=== PATIENT | female | born 1990 | race Caucasian/White ===

== ENCOUNTER 2021-09-02 08:00 | Outpatient (CLI) | payer OTHER | END 2021-09-02 23:59 | LOC: LAB.N 08:00 | PROVIDERS: ATTEND Physician Assistant Medical | DX: R10.9 Unspecified abdominal pain (principal); R19.7 Diarrhea, unspecified | CPT/HCPCS: 81599; 87045; 87086; 87177; 87209; 87427; 87449; 87493 ==

== ENCOUNTER 2021-10-29 08:00 | Outpatient (CLI) | payer OTHER | END 2021-10-29 23:59 | LOC: LAB.R 08:00 | PROVIDERS: ATTEND Physician Assistant Medical | DX: R10.9 Unspecified abdominal pain (principal) | CPT/HCPCS: 87086 ==

== ENCOUNTER 2022-11-14 19:10 | Outpatient (CLI) | payer OTHER | END 2022-11-14 19:11 | disposition EMS.NT | LOC: EMS 19:10 | DX: M54.50 Low back pain, unspecified (principal) ==

== ENCOUNTER 2022-11-14 19:44 | Emergency (ER) | payer OTHER ==
--- OUTSIDE RECORDS SUMMARY | 2022-11-14 20:34 | EXTERNAL MEDICAL SUMMARY RPT | Continuity of Care Document ---
:1990 Author Organization [facility] Address [address] [place] [address] Phone Care Team Providers Name Role Phone Unavailable Unavailable Unavailable Sudhir Valdez Unavailable Unavailable Allergies No information. Encounters No information. Functional Status No information. Immunizations No information. Medications date description facility 2022-11-10 00:00 Clotrimazole [facility] 2022-11-10 00:00 Amoxicillin-Pot Clavulanate [facility] 2022-11-10 00:00 Clobetasol [facility] Problems date description facility 2022-11-10 14:40 Pain in unspecified joint [facility] Procedures No information. Results/Labs test date author facility value unit interpret ation Result panel 1 (unknown) (no date) ([facility] Result panel 2 (unknown) (no date) (unknown[facility]) Result panel 3 (unknown) (no date) (unknown[facility]) Result panel 4 (unknown) (no date) (unknown[facility]) Result panel 5 (unknown) (no date) (unknown[facility]) Result panel 6 (unknown) (no date) (unknown[facility]) Result panel 7 (unknown) (no date) (unknown[facility]) Result panel 8 (unknown) (no date) (unknown[facility]) Result panel 9 (unknown) (no date) (unknown[facility]) Result panel 10 (unknown) (no date) (unknown[facility]) Result panel 11 (unknown) (no date) (unknown[facility]) Result panel 12 (unknown) (no date) (unknown[facility]) Result panel 13 (unknown) (no date) (unknown[facility]) Result panel 14 (unknown) (no date) (unknown[facility]) Result panel 15 (unknown) (no date) (unknown[facility]) Result panel 16 (unknown) (no date) (unknown[facility]) Result panel 17 (unknown) (no date) (unknown[facility]) Result panel 18 (unknown) (no date) (unknown[facility]) Result panel 19 (unknown) (no date) (unknown[facility]) Result panel 20 (unknown) (no date) (unknown[facility]) Result panel 21 (unknown) (no date) (unknown[facility]) Result panel 22 (unknown) (no date) (unknown[facility]) Result panel 23 (unknown) (no date) (unknown[facility]) Result panel 24 (unknown) (no date) (unknown[facility]) Result panel 25 (unknown) (no date) (unknown[facility]) Result panel 26 (unknown) (no date) (unknown[facility]) Result panel 27 (unknown) (no date) (unknown[facility]) Result panel 28 (unknown) (no date) (unknown[facility]) Result panel 29 (unknown) (no date) (unknown[facility]) Result panel 30 (unknown) (no date) (unknown[facility]) Result panel 31 (unknown) (no date) (unknown[facility]) Result panel 32 (unknown) (no date) (unknown[facility]) Result panel 33 (unknown) (no date) (unknown[facility]) Result panel 34 (unknown) (no date) (unknown) [facility]) Result panel 35 (unknown) (no date) (unknown[facility]) Result panel 36 (unknown) (no date) (unknown[facility]) Result panel 37 (unknown) (no date) (unknown) [facility]) Result panel 38 (unknown) (no date) (unknown) [facility]) Result panel 39 (unknown) (no date) (unknown) [facility]) Result panel 40 (unknown) (no date) (unknown) [facility]) Result panel 41 (unknown) (no date) (unknown[facility]) Result panel 42 (unknown) (no date) (unknown[facility]) Result panel 43 (unknown) (no date) (unknown[facility]) Result panel 44 (unknown) (no date) (unknown[facility]) Result panel 45 (unknown) (no date) (unknown[facility]) Result panel 46 (unknown) (no date) (unknown[facility]) Result panel 47 (unknown) (no date) (unknown[facility]) Result panel 48 (unknown) (no date) (unknown[facility]) Result panel 49 (unknown) (no date) (unknown[facility]) Result panel 50 (unknown) (no date) (unknown[facility]) Result panel 51 (unknown) (no date) (unknown[facility]) Result panel 52 (unknown) (no date) (unknown[facility]) Result panel 53 (unknown) (no (unknown) (unknown) (no value) (units (unk nown) date) unknown) (unknown) (no (unknown) (unknown) 11/10/22 (units (unkno wn) date) unknown) (unknown) (no (unknown) (unknown) 11/10/22] (units (unkn own) date) unknown) (unknown) (no (unknown) (unknown) 11/26/21 [Rx (units (u nknown) date) Confirmed unknown) 06/22/22] (unknown) (no (unknown) (unknown) 13:38 (units (unkno wn) date) unknown) (unknown) (no (unknown) (unknown) [id number] (units (unkno wn) date) unknown) (unknown) (no (unknown) (unknown) Age/Sex: 32 / F (units (unknown) date) Date of Service: unknown) (unknown) (no (unknown) (unknown) Allergies (units (unkn own) date) unknown) (unknown) (no (unknown) (unknown) [place], [place] (units ( unknown) date) [id number] unknown) (unknown) (no (unknown) (unknown) Anesthesia (units (unk nown) date) unknown) (unknown) (no (unknown) (unknown) Anxiety (-2015) (units (unknown) date) unknown) (unknown) (no (unknown) (unknown) Attending Dr: (units ( unknown) date) Sudhir PEDERSON unknown) (unknown) (no (unknown) (unknown) BMI 34.4 (units (unkno wn) date) unknown) (unknown) (no (unknown) (unknown) BP 130/86 (units (unkn own) date) unknown) (unknown) (no (unknown) (unknown) Blood Pressure (units (unknown) date) Location Lt unknown) brachial (unknown) (no (unknown) (unknown) Confirmed (units (unkn own) date) 06/22/22] unknown) (unknown) (no (unknown) (unknown) : 1990 (units (unknown) date) Acct:[id number] unknown) (unknown) (no (unknown) (unknown) Decreased libido (units (unknown) date) unknown) (unknown) (no (unknown) (unknown) Dept at (units (unkno wn) date) . unknown) (unknown) (no (unknown) (unknown) Documented By: (units (unknown) date) Sudhir Valdez unknown) 11/10/22 1333 (unknown) (no (unknown) (unknown) Draft (units (unkno wn) date) unknown) (unknown) (no (unknown) (unknown) Ectopic (units (unknown) date) unknown) (unknown) (no (unknown) (unknown) Family History (units (unknown) date) (Reviewed 06/27/22 unknown) @ 11:02 by DACIA Mitchell) (unknown) (no (unknown) (unknown) Family Practice (units (unknown) date) Office Visit unknown) (unknown) (no (unknown) (unknown) [facility] unknown) (unknown) (no (unknown) (unknown) Grandfather (units (un known) date) History of heart unknown) disease (unknown) (no (unknown) (unknown) Grandmother (units (un known) date) Cancer unknown) (unknown) (no (unknown) (unknown) Grandmother (units (un known) date) Diabetes mellitus unknown) (unknown) (no (unknown) (unknown) H/O LEEP (units (unkno wn) date) unknown) (unknown) (no (unknown) (unknown) Height 5 ft 7 in (units (unknown) date) unknown) (unknown) (no (unknown) (unknown) History of (units (unk nown) date) surgery () unknown) (unknown) (no (unknown) (unknown) Hyperplastic (units (u nknown) date) colon polyp unknown) (unknown) (no (unknown) (unknown) Intake performed (units (unknown) date) by: Leticia Pepper unknown) (unknown) (no (unknown) (unknown) Intake (units (unkno wn) date) unknown) (unknown) (no (unknown) (unknown) Intake- Clincial (units (unknown) date) Staff unknown) (unknown) (no (unknown) (unknown) Last Menstural (units (unknown) date) Cycle + Details unknown) (unknown) (no (unknown) (unknown) Loc: [facility] (units (unkno wn) date) unknown) (unknown) (no (unknown) (unknown) Lymphocytic (units (un known) date) colitis unknown) (unknown) (no (unknown) (unknown) Medical History (units (unknown) date) (Reviewed 06/27/22 unknown) @ 11:02 by DACIA Mitchell) (unknown) (no (unknown) (unknown) Medications (units (un known) date) unknown) (unknown) (no (unknown) (unknown) No Known Drug (units ( unknown) date) Allergies Allergy unknown) (Verified 11/10/22 13:34) (unknown) (no (unknown) (unknown) Other Menstrual (units (unknown) date) Period: Other unknown) (unknown) (no (unknown) (unknown) Oxygen Delivery (units (unknown) date) Method room air unknown) (unknown) (no (unknown) (unknown) PFSH (units (unkno wn) date) unknown) (unknown) (no (unknown) (unknown) Patient: (units (unkno wn) date) Rm Teixeira Sheron unknown) MR#: [id number] (unknown) (no (unknown) (unknown) Position Sitting (units (unknown) date) unknown) (unknown) (no (unknown) (unknown) Pulse 87 (units (unkno wn) date) unknown) (unknown) (no (unknown) (unknown) Pulse Oximetry (units (unknown) date) (%) 98 unknown) (unknown) (no (unknown) (unknown) Pulse Source (units (u nknown) date) Monitor unknown) (unknown) (no (unknown) (unknown) Reason For Visit (units (unknown) date) unknown) (unknown) (no (unknown) (unknown) Signed By: (units (unk nown) date) unknown) (unknown) (no (unknown) (unknown) Smoking Status: (units (unknown) date) Former smoker unknown) (unknown) (no (unknown) (unknown) Social History (units (unknown) date) unknown) (unknown) (no (unknown) (unknown) Surgical History (units (unknown) date) (Reviewed 06/27/22 unknown) @ 11:02 by DACIA Mitchell) (unknown) (no (unknown) (unknown) This note may (units ( unknown) date) have been all or unknown) partially generated using voice recognition (unknown) (no (unknown) (unknown) Tobacco + (units (unkn own) date) Substance Use unknown) (unknown) (no (unknown) (unknown) Tobacco Status (units (unknown) date) unknown) (unknown) (no (unknown) (unknown) Visit Reasons: (units (unknown) date) rash on unknown) hands/legs/torso (unknown) (no (unknown) (unknown) Vitals (units (unkno wn) date) unknown) (unknown) (no (unknown) (unknown) Weight 220 lb 4 (units (unknown) date) oz unknown) (unknown) (no (unknown) (unknown) [History (units (unkno wn) date) Confirmed unknown) 11/10/22] (unknown) (no (unknown) (unknown) alcohol intake: (units (unknown) date) former unknown) (unknown) (no (unknown) (unknown) amoxicillin 875 (units (unknown) date) mg-potassium unknown) clavulanate 125 mg tablet 1 tab PO 11/10/22 (unknown) (no (unknown) (unknown) clobetasol 0.05 % (units (unknown) date) topical ointment g unknown) topical 11/10/22 [History Confirmed (unknown) (no (unknown) (unknown) clotrimazole 1 % (units (unknown) date) topical cream g unknown) topical 11/10/22 [History Confirmed 11/10/22] (unknown) (no (unknown) (unknown) cyclobenzaprine (units (unknown) date) 10 mg tablet 10 mg unknown) PO 11/10/22 [History Confirmed 11/10/22] (unknown) (no (unknown) (unknown) have occurred. If (units (unknown) date) there are any unknown) questions, please contact the Medical Records (unknown) (no (unknown) (unknown) household (units (unkn own) date) members: spouse unknown) (unknown) (no (unknown) (unknown) hyoscyamine (units (un known) date) sulfate 0.125 mg unknown) tablet 0.125 mg PO BID-QID PRN dyspepsia #30 tabs (unknown) (no (unknown) (unknown) intrauterine (units (u nknown) date) 02/25/21 [History unknown) Confirmed 11/10/22] (unknown) (no (unknown) (unknown) levonorgestrel 21 (units (unknown) date) mcg/24 hours (8 unknown) yrs) 52 mg intrauterine device (Mirena) (unknown) (no (unknown) (unknown) may occur. (units (unk nown) date) Occasional unknown) wrong-word or 'sound-alike' substitutions may have (unknown) (no (unknown) (unknown) occurred due to (units (unknown) date) the inherent unknown) limitations of voice recognition software. Please (unknown) (no (unknown) (unknown) read the note (units ( unknown) date) carefully and unknown) recognize, using context, where these substitutions (unknown) (no (unknown) (unknown) software. (units (unkn own) date) Although every unknown) effort is made to edit content, torts law professor errors (unknown) (no (unknown) (unknown) trazodone 50 mg (units (unknown) date) tablet 50 mg PO unknown) BEDTIME PRN sleep #30 tabs 06/02/22 [Rx Result panel 54 (unknown) (no (unknown) (unknown) (no value) (units (unk nown) date) unknown) (unknown) (no (unknown) (unknown) 11/10/22 (units (unkno wn) date) unknown) (unknown) (no (unknown) (unknown) 11/10/22] (units (unkn own) date) unknown) (unknown) (no (unknown) (unknown) 11/26/21 [Rx (units (u nknown) date) Confirmed unknown) 06/22/22] (unknown) (no (unknown) (unknown) 13:38 (units (unkno wn) date) unknown) (unknown) (no (unknown) (unknown) 32 Y/O Female (units ( unknown) date) presents today unknown) with a rash/eczema on her hands, thighs and torso. (unknown) (no (unknown) (unknown) [id number] (units (unkno wn) date) unknown) (unknown) (no (unknown) (unknown) Age/Sex: 32 / F (units (unknown) date) Date of Service: unknown) (unknown) (no (unknown) (unknown) Allergies (units (unkn own) date) unknown) (unknown) (no (unknown) (unknown) [place], [place] (units ( unknown) date) [id number] unknown) (unknown) (no (unknown) (unknown) Anesthesia (units (unk nown) date) unknown) (unknown) (no (unknown) (unknown) Anxiety (-2015) (units (unknown) date) unknown) (unknown) (no (unknown) (unknown) Attending Dr: (units ( unknown) date) Sudhir PEDERSON unknown) (unknown) (no (unknown) (unknown) BMI 34.4 (units (unkno wn) date) unknown) (unknown) (no (unknown) (unknown) BP 130/86 (units (unkn own) date) unknown) (unknown) (no (unknown) (unknown) Blood Pressure (units (unknown) date) Location Lt unknown) brachial (unknown) (no (unknown) (unknown) Confirmed (units (unkn own) date) 06/22/22] unknown) (unknown) (no (unknown) (unknown) : 1990 (units (unknown) date) Acct:[id number] unknown) (unknown) (no (unknown) (unknown) Decreased libido (units (unknown) date) unknown) (unknown) (no (unknown) (unknown) Dept at (units (unkno wn) date) . unknown) (unknown) (no (unknown) (unknown) Documented By: (units (unknown) date) Sudhir Valdez unknown) 11/10/22 1333 (unknown) (no (unknown) (unknown) Draft (units (unkno wn) date) unknown) (unknown) (no (unknown) (unknown) Ectopic (units (unknown) date) unknown) (unknown) (no (unknown) (unknown) Family History (units (unknown) date) (Reviewed 06/27/22 unknown) @ 11:02 by DACIA Mitchell) (unknown) (no (unknown) (unknown) Family Practice (units (unknown) date) Office Visit unknown) (unknown) (no (unknown) (unknown) [facility] ([facility] ([facility] date[facility] unknown) (unknown) (no (unknown) (unknown) Grandfather (units (un known) date) History of heart unknown) disease (unknown) (no (unknown) (unknown) Grandmother (units (un known) date) Cancer unknown) (unknown) (no (unknown) (unknown) Grandmother (units (un known) date) Diabetes mellitus unknown) (unknown) (no (unknown) (unknown) H/O LEEP (units (unkno wn) date) unknown) (unknown) (no (unknown) (unknown) Height 5 ft 7 in (units (unknown) date) unknown) (unknown) (no (unknown) (unknown) History of (units (unk nown) date) surgery () unknown) (unknown) (no (unknown) (unknown) Hyperplastic (units (u nknown) date) colon polyp unknown) (unknown) (no (unknown) (unknown) Intake Note: (units (u nknown) date) unknown) (unknown) (no (unknown) (unknown) Intake performed (units (unknown) date) by: Leticia Pepper unknown) (unknown) (no (unknown) (unknown) Intake (units (unkno wn) date) unknown) (unknown) (no (unknown) (unknown) Intake- Clincial (units (unknown) date) Staff unknown) (unknown) (no (unknown) (unknown) Last Menstural (units (unknown) date) Cycle + Details unknown) (unknown) (no (unknown) (unknown) Loc: [facility] (units (unkno wn) date) unknown) (unknown) (no (unknown) (unknown) Lymphocytic (units (un known) date) colitis unknown) (unknown) (no (unknown) (unknown) Medical History (units (unknown) date) (Reviewed 06/27/22 unknown) @ 11:02 by DACIA Mitchell) (unknown) (no (unknown) (unknown) Medications (units (un known) date) unknown) (unknown) (no (unknown) (unknown) No Known Drug (units ( unknown) date) Allergies Allergy unknown) (Verified 11/10/22 13:34) (unknown) (no (unknown) (unknown) Other Menstrual (units (unknown) date) Period: Other unknown) (unknown) (no (unknown) (unknown) Oxygen Delivery (units (unknown) date) Method room air unknown) (unknown) (no (unknown) (unknown) PFSH (units (unkno wn) date) unknown) (unknown) (no (unknown) (unknown) Patient: (units (unkno wn) date) Rm Teixeira unknown) MR#: [id number] (unknown) (no (unknown) (unknown) Position Sitting (units (unknown) date) unknown) (unknown) (no (unknown) (unknown) Pulse 87 (units (unkno wn) date) unknown) (unknown) (no (unknown) (unknown) Pulse Oximetry (units (unknown) date) (%) 98 unknown) (unknown) (no (unknown) (unknown) Pulse Source (units (u nknown) date) Monitor unknown) (unknown) (no (unknown) (unknown) Reason For Visit (units (unknown) date) unknown) (unknown) (no (unknown) (unknown) She has been (units (u nknown) date) experiencing this unknown) since September. She has been given clobetasol (unknown) (no (unknown) (unknown) Signed By: (units (unk nown) date) unknown) (unknown) (no (unknown) (unknown) Smoking Status: (units (unknown) date) Former smoker unknown) (unknown) (no (unknown) (unknown) Social History (units (unknown) date) unknown) (unknown) (no (unknown) (unknown) Surgical History (units (unknown) date) (Reviewed 06/27/22 unknown) @ 11:02 by DACIA Mitchell) (unknown) (no (unknown) (unknown) This note may (units ( unknown) date) have been all or unknown) partially generated using voice recognition (unknown) (no (unknown) (unknown) Tobacco + (units (unkn own) date) Substance Use unknown) (unknown) (no (unknown) (unknown) Tobacco Status (units (unknown) date) unknown) (unknown) (no (unknown) (unknown) Visit Reasons: (units (unknown) date) rash on unknown) hands/legs/torso (unknown) (no (unknown) (unknown) Vitals (units (unkno wn) date) unknown) (unknown) (no (unknown) (unknown) Weight 220 lb 4 (units (unknown) date) oz unknown) (unknown) (no (unknown) (unknown) [History (units (unkno wn) date) Confirmed unknown) 11/10/22] (unknown) (no (unknown) (unknown) alcohol intake: (units (unknown) date) former unknown) (unknown) (no (unknown) (unknown) amoxicillin 875 (units (unknown) date) mg-potassium unknown) clavulanate 125 mg tablet 1 tab PO 11/10/22 (unknown) (no (unknown) (unknown) clobetasol 0.05 % (units (unknown) date) topical ointment g unknown) topical 11/10/22 [History Confirmed (unknown) (no (unknown) (unknown) clotrimazole 1 % (units (unknown) date) topical cream g unknown) topical 11/10/22 [History Confirmed 11/10/22] (unknown) (no (unknown) (unknown) cyclobenzaprine (units (unknown) date) 10 mg tablet 10 mg unknown) PO 11/10/22 [History Confirmed 11/10/22] (unknown) (no (unknown) (unknown) first time she (units (unknown) date) went to a walk in unknown) clinic for this, they diagnosed her with 'hand (unknown) (no (unknown) (unknown) foot and mouth (units (unknown) date) disease', the unknown) second time the provider stated it was eczema. (unknown) (no (unknown) (unknown) have occurred. If (units (unknown) date) there are any unknown) questions, please contact the Medical Records (unknown) (no (unknown) (unknown) household (units (unkn own) date) members: spouse unknown) (unknown) (no (unknown) (unknown) hyoscyamine (units (un known) date) sulfate 0.125 mg unknown) tablet 0.125 mg PO BID-QID PRN dyspepsia #30 tabs (unknown) (no (unknown) (unknown) intrauterine (units (u nknown) date) 02/25/21 [History unknown) Confirmed 11/10/22] (unknown) (no (unknown) (unknown) levonorgestrel 21 (units (unknown) date) mcg/24 hours (8 unknown) yrs) 52 mg intrauterine device (Mirena) (unknown) (no (unknown) (unknown) may occur. (units (unk nown) date) Occasional unknown) wrong-word or 'sound-alike' substitutions may have (unknown) (no (unknown) (unknown) occurred due to (units (unknown) date) the inherent unknown) limitations of voice recognition software. Please (unknown) (no (unknown) (unknown) read the note (units ( unknown) date) carefully and unknown) recognize, using context, where these substitutions (unknown) (no (unknown) (unknown) software. (units (unkn own) date) Although every unknown) effort is made to edit content, torts law professor errors (unknown) (no (unknown) (unknown) topical (units (unkno wn) date) medication with unknown) some relief but is still struggling to control it. The (unknown) (no (unknown) (unknown) trazodone 50 mg (units (unknown) date) tablet 50 mg PO unknown) BEDTIME PRN sleep #30 tabs 06/02/22 [Rx Result panel 55 (unknown) (no date) (unknown) (unknown) 57 units 34873 -7 (unknown) (no date) (unknown) (unknown) 57 units (unkn own) (unknown) (no date) (unknown) (unknown) Negative (units 92934 -3 unknown) (unknown) (no date) (unknown) (unknown) Negative (units (unkn own) unknown) Result panel 56 (unknown) (no (unknown) (unknown) (no value) (units (unk nown) date) unknown) (unknown) (no (unknown) (unknown) (1) Dermatitis: (units (unknown) date) unknown) (unknown) (no (unknown) (unknown) (2) Joint pain: (units (unknown) date) unknown) (unknown) (no (unknown) (unknown) 11/10/22 (units (unkno wn) date) unknown) (unknown) (no (unknown) (unknown) 11/10/22] (units (unkn own) date) unknown) (unknown) (no (unknown) (unknown) 11/26/21 [Rx (units (u nknown) date) Confirmed unknown) 06/22/22] (unknown) (no (unknown) (unknown) 13:38 (units (unkno wn) date) unknown) (unknown) (no (unknown) (unknown) 32 Y/O Female (units ( unknown) date) presents today unknown) with a rash/eczema on her hands, thighs and torso. (unknown) (no (unknown) (unknown) [id number] (units (unkno wn) date) unknown) (unknown) (no (unknown) (unknown) ?psoriasis??? (units ( unknown) date) unknown) (unknown) (no (unknown) (unknown) SYLVIE Screen, IFA, (units (unknown) date) Refl Tit Andreea 1 unknown) Week M25.50 - Pain in unspecified joint (unknown) (no (unknown) (unknown) Age/Sex: 32 / F (units (unknown) date) Date of Service: unknown) (unknown) (no (unknown) (unknown) Allergies (units (unkn own) date) unknown) (unknown) (no (unknown) (unknown) [place], [place] (units ( unknown) date) [id number] unknown) (unknown) (no (unknown) (unknown) Anesthesia (units (unk nown) date) unknown) (unknown) (no (unknown) (unknown) Anxiety (-2015) (units (unknown) date) unknown) (unknown) (no (unknown) (unknown) Assessment + Plan (units (unknown) date) unknown) (unknown) (no (unknown) (unknown) Attending Dr: (units ( unknown) date) Sudhir PEDERSON unknown) (unknown) (no (unknown) (unknown) BMI 34.4 (units (unkno wn) date) unknown) (unknown) (no (unknown) (unknown) BP 130/86 (units (unkn own) date) unknown) (unknown) (no (unknown) (unknown) Blood Pressure (units (unknown) date) Location Lt unknown) brachial (unknown) (no (unknown) (unknown) C-Reactive (units (unk nown) date) Protein Quant 1 unknown) Week M25.50 - Pain in unspecified joint (unknown) (no (unknown) (unknown) CCP Antibodies (units (unknown) date) IgG/IgA 1 Week unknown) M25.50 - Pain in unspecified joint (unknown) (no (unknown) (unknown) Complete Blood (units (unknown) date) Count AUTO DIFF 1 unknown) Week M25.50 - Pain in unspecified joint (unknown) (no (unknown) (unknown) Comprehensive (units ( unknown) date) Metabolic Panel 1 unknown) Week M25.50 - Pain in unspecified joint (unknown) (no (unknown) (unknown) Confirmed (units (unkn own) date) 06/22/22] unknown) (unknown) (no (unknown) (unknown) : 1990 (units (unknown) date) Acct:[id number] unknown) (unknown) (no (unknown) (unknown) Decreased libido (units (unknown) date) unknown) (unknown) (no (unknown) (unknown) Dept at (units (unkno wn) date) . unknown) (unknown) (no (unknown) (unknown) Details: (units (unkno wn) date) unknown) (unknown) (no (unknown) (unknown) Documented By: (units (unknown) date) Sudhir Valdez unknown) 11/10/22 1333 (unknown) (no (unknown) (unknown) Draft (units (unkno wn) date) unknown) (unknown) (no (unknown) (unknown) Ectopic (units (unknown) date) unknown) (unknown) (no (unknown) (unknown) Erythrocyte (units (un known) date) Sedimentation Rate unknown) 1 Week M25.50 - Pain in unspecified joint (unknown) (no (unknown) (unknown) Family History (units (unknown) date) (Reviewed 06/27/22 unknown) @ 11:02 by DACIA Mitchell) (unknown) (no (unknown) (unknown) Family Practice (units (unknown) date) Office Visit unknown) (unknown) (no (unknown) (unknown) [facility] (units ([facility] date[facility] unknown) (unknown) (no (unknown) (unknown) Grandfather (units (un known) date) History of heart unknown) disease (unknown) (no (unknown) (unknown) Grandmother (units (un known) date) Cancer unknown) (unknown) (no (unknown) (unknown) Grandmother (units (un known) date) Diabetes mellitus unknown) (unknown) (no (unknown) (unknown) H/O LEEP (units (unkno wn) date) unknown) (unknown) (no (unknown) (unknown) HLA B27 1 Week (units (unknown) date) M25.50 - Pain in unknown) unspecified joint (unknown) (no (unknown) (unknown) HPI (units (unkno wn) date) unknown) (unknown) (no (unknown) (unknown) Height 170.18 cm (units (unknown) date) unknown) (unknown) (no (unknown) (unknown) History of (units (unk nown) date) surgery () unknown) (unknown) (no (unknown) (unknown) Hyperplastic (units (u nknown) date) colon polyp unknown) (unknown) (no (unknown) (unknown) Intake Note: (units (u nknown) date) unknown) (unknown) (no (unknown) (unknown) Intake performed (units (unknown) date) by: Leticia Pepper unknown) (unknown) (no (unknown) (unknown) Intake (units (unkno wn) date) unknown) (unknown) (no (unknown) (unknown) Intake- Clincial (units (unknown) date) Staff unknown) (unknown) (no (unknown) (unknown) Last Menstural (units (unknown) date) Cycle + Details unknown) (unknown) (no (unknown) (unknown) Loc: [facility] (units (unkno wn) date) unknown) (unknown) (no (unknown) (unknown) Lymphocytic (units (un known) date) colitis unknown) (unknown) (no (unknown) (unknown) Medical History (units (unknown) date) (Reviewed 06/27/22 unknown) @ 11:02 by DACIA Mitchell) (unknown) (no (unknown) (unknown) Medications (units (un known) date) unknown) (unknown) (no (unknown) (unknown) No Known Drug (units ( unknown) date) Allergies Allergy unknown) (Verified 11/10/22 13:34) (unknown) (no (unknown) (unknown) Orders (units (unkno wn) date) unknown) (unknown) (no (unknown) (unknown) Orders: (units (unkno wn) date) unknown) (unknown) (no (unknown) (unknown) Other Menstrual (units (unknown) date) Period: Other unknown) (unknown) (no (unknown) (unknown) Oxygen Delivery (units (unknown) date) Method room air unknown) (unknown) (no (unknown) (unknown) PFSH (units (unkno wn) date) unknown) (unknown) (no (unknown) (unknown) Patient: (units (unkno wn) date) Rm Teixeira unknown) MR#: [id number] (unknown) (no (unknown) (unknown) Position Sitting (units (unknown) date) unknown) (unknown) (no (unknown) (unknown) Pulse 87 (units (unkno wn) date) unknown) (unknown) (no (unknown) (unknown) Pulse Oximetry (units (unknown) date) (%) 98 unknown) (unknown) (no (unknown) (unknown) Pulse Source (units (u nknown) date) Monitor unknown) (unknown) (no (unknown) (unknown) Reason For Visit (units (unknown) date) unknown) (unknown) (no (unknown) (unknown) Referral (units (unkno wn) date) Dermatology L30.9 unknown) - Dermatitis, unspecified (unknown) (no (unknown) (unknown) Referrals (units (unkn own) date) unknown) (unknown) (no (unknown) (unknown) Rheumatoid Factor (units (unknown) date) 1 Week M25.50 - unknown) Pain in unspecified joint (unknown) (no (unknown) (unknown) She has been (units (u nknown) date) experiencing this unknown) since September. She has been given clobetasol (unknown) (no (unknown) (unknown) Signed By: (units (unk nown) date) unknown) (unknown) (no (unknown) (unknown) Smoking Status: (units (unknown) date) Former smoker unknown) (unknown) (no (unknown) (unknown) Social History (units (unknown) date) unknown) (unknown) (no (unknown) (unknown) Surgical History (units (unknown) date) (Reviewed 06/27/22 unknown) @ 11:02 by DACIA Mitchell) (unknown) (no (unknown) (unknown) TSH w/ Reflex to (units (unknown) date) FT4 1 Week M25.50 unknown) - Pain in unspecified joint (unknown) (no (unknown) (unknown) This note may (units ( unknown) date) have been all or unknown) partially generated using voice recognition (unknown) (no (unknown) (unknown) Tobacco + (units (unkn own) date) Substance Use unknown) (unknown) (no (unknown) (unknown) Tobacco Status (units (unknown) date) unknown) (unknown) (no (unknown) (unknown) Visit Reasons: (units (unknown) date) rash on unknown) hands/legs/torso (unknown) (no (unknown) (unknown) Vitals (units (unkno wn) date) unknown) (unknown) (no (unknown) (unknown) Weight 99.904 kg (units (unknown) date) unknown) (unknown) (no (unknown) (unknown) [History (units (unkno wn) date) Confirmed unknown) 11/10/22] (unknown) (no (unknown) (unknown) alcohol intake: (units (unknown) date) former unknown) (unknown) (no (unknown) (unknown) amoxicillin 875 (units (unknown) date) mg-potassium unknown) clavulanate 125 mg tablet 1 tab PO 11/10/22 (unknown) (no (unknown) (unknown) clobetasol 0.05 % (units (unknown) date) topical ointment g unknown) topical 11/10/22 [History Confirmed (unknown) (no (unknown) (unknown) clotrimazole 1 % (units (unknown) date) topical cream g unknown) topical 11/10/22 [History Confirmed 11/10/22] (unknown) (no (unknown) (unknown) cyclobenzaprine (units (unknown) date) 10 mg tablet 10 mg unknown) PO 11/10/22 [History Confirmed 11/10/22] (unknown) (no (unknown) (unknown) derm. (units (unkno wn) date) unknown) (unknown) (no (unknown) (unknown) first time she (units (unknown) date) went to a walk in unknown) clinic for this, they diagnosed her with 'hand (unknown) (no (unknown) (unknown) foot and mouth (units (unknown) date) disease', the unknown) second time the provider stated it was eczema. (unknown) (no (unknown) (unknown) have occurred. If (units (unknown) date) there are any unknown) questions, please contact the Medical Records (unknown) (no (unknown) (unknown) having some hip (units (unknown) date) pain. unknown) (unknown) (no (unknown) (unknown) household (units (unkn own) date) members: spouse unknown) (unknown) (no (unknown) (unknown) hyoscyamine (units (un known) date) sulfate 0.125 mg unknown) tablet 0.125 mg PO BID-QID PRN dyspepsia #30 tabs (unknown) (no (unknown) (unknown) intrauterine (units (u nknown) date) 02/25/21 [History unknown) Confirmed 11/10/22] (unknown) (no (unknown) (unknown) labwork ordered, (units (unknown) date) refer to unknown) rheumatology. continue topical clobetasol referred to (unknown) (no (unknown) (unknown) legs, resolving (units (unknown) date) postinfalmatory unknown) erythema with scale sides trunkk bilat. (unknown) (no (unknown) (unknown) levonorgestrel 21 (units (unknown) date) mcg/24 hours (8 unknown) yrs) 52 mg intrauterine device (Mirena) (unknown) (no (unknown) (unknown) may occur. (units (unk nown) date) Occasional unknown) wrong-word or 'sound-alike' substitutions may have (unknown) (no (unknown) (unknown) occurred due to (units (unknown) date) the inherent unknown) limitations of voice recognition software. Please (unknown) (no (unknown) (unknown) read the note (units ( unknown) date) carefully and unknown) recognize, using context, where these substitutions (unknown) (no (unknown) (unknown) software. (units (unkn own) date) Although every unknown) effort is made to edit content, torts law professor errors (unknown) (no (unknown) (unknown) times, thickened (units (unknown) date) nails, cracked unknown) fingertips, erythematous macules with scale on (unknown) (no (unknown) (unknown) topical (units (unkno wn) date) medication with unknown) some relief but is still struggling to control it. The (unknown) (no (unknown) (unknown) trazodone 50 mg (units (unknown) date) tablet 50 mg PO unknown) BEDTIME PRN sleep #30 tabs 06/02/22 [Rx (unknown) (no (unknown) (unknown) ttp bilateral mcp (units (unknown) date) and pip and dip unknown) joints, hands painful throughout, swell at Result panel 57 (unknown) (no date) (unknown) (unknown) 0.8 % (unkn own) (unknown) (no date) (unknown) (unknown) 10.0 x10 3/ul (unkn own) (unknown) (no date) (unknown) (unknown) 100 /ul (unkn own) (unknown) (no date) (unknown) (unknown) 14.2 % (unkn own) (unknown) (no date) (unknown) (unknown) 14.3 g/dl (unkn own) (unknown) (no date) (unknown) (unknown) 26.4 % (unkn own) (unknown) (no date) (unknown) (unknown) 2600 /ul (unkn own) (unknown) (no date) (unknown) (unknown) 29.9 pg (unkn own) (unknown) (no date) (unknown) (unknown) 330 x10 3/ul (unkn own) (unknown) (no date) (unknown) (unknown) 34.1 % (unkn own) (unknown) (no date) (unknown) (unknown) 4.5 % (unkn own) (unknown) (no date) (unknown) (unknown) 4.77 x10 6/ul (unkn own) (unknown) (no date) (unknown) (unknown) 41.8 % (unkn own) (unknown) (no date) (unknown) (unknown) 5.7 % (unkn own) (unknown) (no date) (unknown) (unknown) 500 /ul (unkn own) (unknown) (no date) (unknown) (unknown) 600 /ul (unkn own) (unknown) (no date) (unknown) (unknown) 62.6 % (unkn own) (unknown) (no date) (unknown) (unknown) 6300 /ul (unkn own) (unknown) (no date) (unknown) (unknown) 87.7 fl (unkn own) Result panel 58 (unknown) (no date) (unknown) (unknown) 0.8 % (unkn own) (unknown) (no date) (unknown) (unknown) 10.0 x10 3/ul (unkn own) (unknown) (no date) (unknown) (unknown) 100 /ul (unkn own) (unknown) (no date) (unknown) (unknown) 14.2 % (unkn own) (unknown) (no date) (unknown) (unknown) 14.3 g/dl (unkn own) (unknown) (no date) (unknown) (unknown) 23 mm/hr (unkn own) (unknown) (no date) (unknown) (unknown) 26.4 % (unkn own) (unknown) (no date) (unknown) (unknown) 2600 /ul (unkn own) (unknown) (no date) (unknown) (unknown) 29.9 pg (unkn own) (unknown) (no date) (unknown) (unknown) 330 x10 3/ul (unkn own) (unknown) (no date) (unknown) (unknown) 34.1 % (unkn own) (unknown) (no date) (unknown) (unknown) 4.5 % (unkn own) (unknown) (no date) (unknown) (unknown) 4.77 x10 6/ul (unkn own) (unknown) (no date) (unknown) (unknown) 41.8 % (unkn own) (unknown) (no date) (unknown) (unknown) 5.7 % (unkn own) (unknown) (no date) (unknown) (unknown) 500 /ul (unkn own) (unknown) (no date) (unknown) (unknown) 600 /ul (unkn own) (unknown) (no date) (unknown) (unknown) 62.6 % (unkn own) (unknown) (no date) (unknown) (unknown) 6300 /ul (unkn own) (unknown) (no date) (unknown) (unknown) 87.7 fl (unkn own) Result panel 59 (unknown) (no date) (unknown) (unknown) > 60 ml/min (unkn own) (unknown) (no date) (unknown) (unknown) > 60 ml/min (unkn own) (unknown) (no date) (unknown) (unknown) < 8.6 iu/ml (unkn own) (unknown) (no date) (unknown) (unknown) 0.2 mg/dl (unkn own) (unknown) (no date) (unknown) (unknown) 0.73 mg/dl (unkn own) (unknown) (no date) (unknown) (unknown) 0.9 mg/dl (unkn own) (unknown) (no date) (unknown) (unknown) 1.3 (units unknown) (unknown) (unknown) (no date) (unknown) (unknown) 103 mg/dl (unkn own) (unknown) (no date) (unknown) (unknown) 103 mg/dl (unkn own) (unknown) (no date) (unknown) (unknown) 108 mmol/l (unkn own) (unknown) (no date) (unknown) (unknown) 12 mg/dl (unkn own) (unknown) (no date) (unknown) (unknown) 139 mmol/l (unkn own) (unknown) (no date) (unknown) (unknown) 16.4 (units unknown) (unknown) (unknown) (no date) (unknown) (unknown) 22 iu/l (unkn own) (unknown) (no date) (unknown) (unknown) 22 mmol/l (unkn own) (unknown) (no date) (unknown) (unknown) 29 iu/l (unkn own) (unknown) (no date) (unknown) (unknown) 3.1 g/dl (unkn own) (unknown) (no date) (unknown) (unknown) 4.0 g/dl (unkn own) (unknown) (no date) (unknown) (unknown) 4.3 mmol/l (unkn own) (unknown) (no date) (unknown) (unknown) 7.1 g/dl (unkn own) (unknown) (no date) (unknown) (unknown) 74 u/l (unkn own) (unknown) (no date) (unknown) (unknown) 9.4 mg/dl (unkn own) Result panel 60 (unknown) (no date) (unknown) (unknown) 0.71 uiu/ml (unkn own) Result panel 61 (unknown) (no date) (unknown) (unknown) Negative (units (unkn own) unknown) (unknown) (no date) (unknown) (unknown) Negative (units (unkn own) unknown) Result panel 62 (unknown) (no (unknown) (unknown) (no value) (units (unk nown) date) unknown) (unknown) (no (unknown) (unknown) (1) Dermatitis: (units (unknown) date) unknown) (unknown) (no (unknown) (unknown) (2) Joint pain: (units (unknown) date) unknown) (unknown) (no (unknown) (unknown) 11/10/22 (units (unkno wn) date) unknown) (unknown) (no (unknown) (unknown) 11/10/22] (units (unkn own) date) unknown) (unknown) (no (unknown) (unknown) 11/26/21 [Rx (units (u nknown) date) Confirmed unknown) 06/22/22] (unknown) (no (unknown) (unknown) 13:38 (units (unkno wn) date) unknown) (unknown) (no (unknown) (unknown) 32 Y/O Female (units ( unknown) date) presents today unknown) with a rash/eczema on her hands, thighs and torso. (unknown) (no (unknown) (unknown) 32-year-old (units (un known) date) female presents unknown) complaining of skin rashes affecting hands, trunk, (unknown) (no (unknown) (unknown) [id number] (units (unkno wn) date) unknown) (unknown) (no (unknown) (unknown) ?psoriasis??? (units ( unknown) date) unknown) (unknown) (no (unknown) (unknown) SYLVIE Screen, IFA, (units (unknown) date) Refl Tit Andreea unknown) 11/10/22 M25.50 - Pain in unspecified joint (unknown) (no (unknown) (unknown) Age/Sex: 32 / F (units (unknown) date) Date of Service: unknown) (unknown) (no (unknown) (unknown) Allergies (units (unkn own) date) unknown) (unknown) (no (unknown) (unknown) [place], [place] (units ( unknown) date) [id number] unknown) (unknown) (no (unknown) (unknown) Anesthesia (units (unk nown) date) unknown) (unknown) (no (unknown) (unknown) Anxiety (-2015) (units (unknown) date) unknown) (unknown) (no (unknown) (unknown) Assessment + Plan (units (unknown) date) unknown) (unknown) (no (unknown) (unknown) Attending Dr: (units ( unknown) date) Sudhir PEDERSON unknown) (unknown) (no (unknown) (unknown) BMI 34.4 (units (unkno wn) date) unknown) (unknown) (no (unknown) (unknown) BP 130/86 (units (unkn own) date) unknown) (unknown) (no (unknown) (unknown) Blood Pressure (units (unknown) date) Location Lt unknown) brachial (unknown) (no (unknown) (unknown) C-Reactive (units (unk nown) date) Protein Quant unknown) 11/10/22 M25.50 - Pain in unspecified joint (unknown) (no (unknown) (unknown) CCP Antibodies (units (unknown) date) IgG/IgA 11/10/22 unknown) M25.50 - Pain in unspecified joint (unknown) (no (unknown) (unknown) Chief Complaint (units (unknown) date) unknown) (unknown) (no (unknown) (unknown) Chief Complaint: (units (unknown) date) Rash on unknown) hands/trunk/legs/b ilateral hand swelling and pain (unknown) (no (unknown) (unknown) Complete Blood (units (unknown) date) Count AUTO DIFF unknown) 11/10/22 M25.50 - Pain in unspecified joint (unknown) (no (unknown) (unknown) Comprehensive (units ( unknown) date) Metabolic Panel unknown) 11/10/22 M25.50 - Pain in unspecified joint (unknown) (no (unknown) (unknown) Confirmed (units (unkn own) date) 06/22/22] unknown) (unknown) (no (unknown) (unknown) : 1990 (units (unknown) date) Acct:[id number] unknown) (unknown) (no (unknown) (unknown) Decreased libido (units (unknown) date) unknown) (unknown) (no (unknown) (unknown) Dept at (units (unkno wn) date) . unknown) (unknown) (no (unknown) (unknown) Details: (units (unkno wn) date) unknown) (unknown) (no (unknown) (unknown) Documented By: (units (unknown) date) Sudhir Valdez unknown) 11/10/22 1333 (unknown) (no (unknown) (unknown) Draft (units (unkno wn) date) unknown) (unknown) (no (unknown) (unknown) Ectopic (units (unknown) date) unknown) (unknown) (no (unknown) (unknown) Erythrocyte (units (un known) date) Sedimentation Rate unknown) 11/10/22 M25.50 - Pain in unspecified joint (unknown) (no (unknown) (unknown) Family History (units (unknown) date) (Reviewed 06/27/22 unknown) @ 11:02 by DACIA Mitchell) (unknown) (no (unknown) (unknown) Family Practice (units (unknown) date) Office Visit unknown) (unknown) (no (unknown) (unknown) [facility] (units (unknown) date[facility] unknown) (unknown) (no (unknown) (unknown) Grandfather (units (un known) date) History of heart unknown) disease (unknown) (no (unknown) (unknown) Grandmother (units (un known) date) Cancer unknown) (unknown) (no (unknown) (unknown) Grandmother (units (un known) date) Diabetes mellitus unknown) (unknown) (no (unknown) (unknown) H/O LEEP (units (unkno wn) date) unknown) (unknown) (no (unknown) (unknown) HLA B27 11/10/22 (units (unknown) date) M25.50 - Pain in unknown) unspecified joint (unknown) (no (unknown) (unknown) HPI (units (unkno wn) date) unknown) (unknown) (no (unknown) (unknown) Height 170.18 cm (units (unknown) date) unknown) (unknown) (no (unknown) (unknown) History of (units (unk nown) date) surgery () unknown) (unknown) (no (unknown) (unknown) Hyperplastic (units (u nknown) date) colon polyp unknown) (unknown) (no (unknown) (unknown) Intake Note: (units (u nknown) date) unknown) (unknown) (no (unknown) (unknown) Intake performed (units (unknown) date) by: Leticia Pepper unknown) (unknown) (no (unknown) (unknown) Intake (units (unkno wn) date) unknown) (unknown) (no (unknown) (unknown) Intake- Clincial (units (unknown) date) Staff unknown) (unknown) (no (unknown) (unknown) Last Menstural (units (unknown) date) Cycle + Details unknown) (unknown) (no (unknown) (unknown) Loc: [facility] (units (unkno wn) date) unknown) (unknown) (no (unknown) (unknown) Lymphocytic (units (un known) date) colitis unknown) (unknown) (no (unknown) (unknown) Medical History (units (unknown) date) (Reviewed 06/27/22 unknown) @ 11:02 by DACIA Mitchell) (unknown) (no (unknown) (unknown) Medications (units (un known) date) unknown) (unknown) (no (unknown) (unknown) No Known Drug (units ( unknown) date) Allergies Allergy unknown) (Verified 11/10/22 13:34) (unknown) (no (unknown) (unknown) Orders (units (unkno wn) date) unknown) (unknown) (no (unknown) (unknown) Orders: (units (unkno wn) date) unknown) (unknown) (no (unknown) (unknown) Other Menstrual (units (unknown) date) Period: Other unknown) (unknown) (no (unknown) (unknown) Oxygen Delivery (units (unknown) date) Method room air unknown) (unknown) (no (unknown) (unknown) PFSH (units (unkno wn) date) unknown) (unknown) (no (unknown) (unknown) Patient: (units (unkno wn) date) Rm Teixeira unknown) MR#: [id number] (unknown) (no (unknown) (unknown) Position Sitting (units (unknown) date) unknown) (unknown) (no (unknown) (unknown) Pulse 87 (units (unkno wn) date) unknown) (unknown) (no (unknown) (unknown) Pulse Oximetry (units (unknown) date) (%) 98 unknown) (unknown) (no (unknown) (unknown) Pulse Source (units (u nknown) date) Monitor unknown) (unknown) (no (unknown) (unknown) Reason For Visit (units (unknown) date) unknown) (unknown) (no (unknown) (unknown) Referral (units (unkno wn) date) Dermatology L30.9 unknown) - Dermatitis, unspecified (unknown) (no (unknown) (unknown) Referrals (units (unkn own) date) unknown) (unknown) (no (unknown) (unknown) Rheumatoid Factor (units (unknown) date) 11/10/22 M25.50 - unknown) Pain in unspecified joint (unknown) (no (unknown) (unknown) She has been (units (u nknown) date) experiencing this unknown) since September. She has been given clobetasol (unknown) (no (unknown) (unknown) Signed By: (units (unk nown) date) unknown) (unknown) (no (unknown) (unknown) Smoking Status: (units (unknown) date) Former smoker unknown) (unknown) (no (unknown) (unknown) Social History (units (unknown) date) unknown) (unknown) (no (unknown) (unknown) Surgical History (units (unknown) date) (Reviewed 06/27/22 unknown) @ 11:02 by DACIA Mitchell) (unknown) (no (unknown) (unknown) TSH w/ Reflex to (units (unknown) date) FT4 11/10/22 unknown) M25.50 - Pain in unspecified joint (unknown) (no (unknown) (unknown) This note may (units ( unknown) date) have been all or unknown) partially generated using voice recognition (unknown) (no (unknown) (unknown) Tobacco + (units (unkn own) date) Substance Use unknown) (unknown) (no (unknown) (unknown) Tobacco Status (units (unknown) date) unknown) (unknown) (no (unknown) (unknown) Visit Reasons: (units (unknown) date) rash on unknown) hands/legs/torso (unknown) (no (unknown) (unknown) Vitals (units (unkno wn) date) unknown) (unknown) (no (unknown) (unknown) Weight 99.904 kg (units (unknown) date) unknown) (unknown) (no (unknown) (unknown) [History (units (unkno wn) date) Confirmed unknown) 11/10/22] (unknown) (no (unknown) (unknown) alcohol intake: (units (unknown) date) former unknown) (unknown) (no (unknown) (unknown) amoxicillin 875 (units (unknown) date) mg-potassium unknown) clavulanate 125 mg tablet 1 tab PO 11/10/22 (unknown) (no (unknown) (unknown) clobetasol 0.05 % (units (unknown) date) topical ointment g unknown) topical 11/10/22 [History Confirmed (unknown) (no (unknown) (unknown) clotrimazole 1 % (units (unknown) date) topical cream g unknown) topical 11/10/22 [History Confirmed 11/10/22] (unknown) (no (unknown) (unknown) cyclobenzaprine (units (unknown) date) 10 mg tablet 10 mg unknown) PO 11/10/22 [History Confirmed 11/10/22] (unknown) (no (unknown) (unknown) derm. (units (unkno wn) date) unknown) (unknown) (no (unknown) (unknown) first time she (units (unknown) date) went to a walk in unknown) clinic for this, they diagnosed her with 'hand (unknown) (no (unknown) (unknown) foot and mouth (units (unknown) date) disease', the unknown) second time the provider stated it was eczema. (unknown) (no (unknown) (unknown) have occurred. If (units (unknown) date) there are any unknown) questions, please contact the Medical Records (unknown) (no (unknown) (unknown) having some hip (units (unknown) date) pain. unknown) (unknown) (no (unknown) (unknown) household (units (unkn own) date) members: spouse unknown) (unknown) (no (unknown) (unknown) hyoscyamine (units (un known) date) sulfate 0.125 mg unknown) tablet 0.125 mg PO BID-QID PRN dyspepsia #30 tabs (unknown) (no (unknown) (unknown) intrauterine (units (u nknown) date) 02/25/21 [History unknown) Confirmed 11/10/22] (unknown) (no (unknown) (unknown) labwork ordered, (units (unknown) date) refer to unknown) rheumatology. continue topical clobetasol referred to (unknown) (no (unknown) (unknown) legs as well as (units (unknown) date) bilateral hand unknown) pain and swelling. (unknown) (no (unknown) (unknown) legs, resolving (units (unknown) date) postinfalmatory unknown) erythema with scale sides trunkk bilat. (unknown) (no (unknown) (unknown) levonorgestrel 21 (units (unknown) date) mcg/24 hours (8 unknown) yrs) 52 mg intrauterine device (Mirena) (unknown) (no (unknown) (unknown) may occur. (units (unk nown) date) Occasional unknown) wrong-word or 'sound-alike' substitutions may have (unknown) (no (unknown) (unknown) occurred due to (units (unknown) date) the inherent unknown) limitations of voice recognition software. Please (unknown) (no (unknown) (unknown) read the note (units ( unknown) date) carefully and unknown) recognize, using context, where these substitutions (unknown) (no (unknown) (unknown) software. (units (unkn own) date) Although every unknown) effort is made to edit content, torts law professor errors (unknown) (no (unknown) (unknown) times, thickened (units (unknown) date) nails, cracked unknown) fingertips, erythematous macules with scale on (unknown) (no (unknown) (unknown) topical (units (unkno wn) date) medication with unknown) some relief but is still struggling to control it. The (unknown) (no (unknown) (unknown) trazodone 50 mg (units (unknown) date) tablet 50 mg PO unknown) BEDTIME PRN sleep #30 tabs 06/02/22 [Rx (unknown) (no (unknown) (unknown) ttp bilateral mcp (units (unknown) date) and pip and dip unknown) joints, hands painful throughout, swell at Result panel 63 (unknown) (no (unknown) (unknown) (no value) (units (unk nown) date) unknown) (unknown) (no (unknown) (unknown) (1) Dermatitis: (units (unknown) date) unknown) (unknown) (no (unknown) (unknown) (2) Joint pain: (units (unknown) date) unknown) (unknown) (no (unknown) (unknown) 11/10/22 (units (unkno wn) date) unknown) (unknown) (no (unknown) (unknown) 11/10/22] (units (unkn own) date) unknown) (unknown) (no (unknown) (unknown) 11/26/21 [Rx (units (u nknown) date) Confirmed unknown) 06/22/22] (unknown) (no (unknown) (unknown) 13:38 (units (unkno wn) date) unknown) (unknown) (no (unknown) (unknown) 32 Y/O Female (units ( unknown) date) presents today unknown) with a rash/eczema on her hands, thighs and torso. (unknown) (no (unknown) (unknown) 32-year-old (units (un known) date) female presents unknown) complaining of skin rashes affecting hands, trunk, (unknown) (no (unknown) (unknown) [id number] (units (unkno wn) date) unknown) (unknown) (no (unknown) (unknown) ?psoriasis??? (units ( unknown) date) unknown) (unknown) (no (unknown) (unknown) SYLVIE Screen, IFA, (units (unknown) date) Refl Tit Andreea unknown) 11/10/22 M25.50 - Pain in unspecified joint (unknown) (no (unknown) (unknown) Age/Sex: 32 / F (units (unknown) date) Date of Service: unknown) (unknown) (no (unknown) (unknown) Allergies (units (unkn own) date) unknown) (unknown) (no (unknown) (unknown) [place], [place] (units ( unknown) date) [id number] unknown) (unknown) (no (unknown) (unknown) Anesthesia (units (unk nown) date) unknown) (unknown) (no (unknown) (unknown) Anxiety (-2015) (units (unknown) date) unknown) (unknown) (no (unknown) (unknown) Assessment + Plan (units (unknown) date) unknown) (unknown) (no (unknown) (unknown) Attending Dr: (units ( unknown) date) Sudhir MARTINP unknown) (unknown) (no (unknown) (unknown) BMI 34.4 (units (unkno wn) date) unknown) (unknown) (no (unknown) (unknown) BP 130/86 (units (unkn own) date) unknown) (unknown) (no (unknown) (unknown) Blood Pressure (units (unknown) date) Location Lt unknown) brachial (unknown) (no (unknown) (unknown) C-Reactive (units (unk nown) date) Protein Quant unknown) 11/10/22 M25.50 - Pain in unspecified joint (unknown) (no (unknown) (unknown) CCP Antibodies (units (unknown) date) IgG/IgA 11/10/22 unknown) M25.50 - Pain in unspecified joint (unknown) (no (unknown) (unknown) Chief Complaint (units (unknown) date) unknown) (unknown) (no (unknown) (unknown) Chief Complaint: (units (unknown) date) Rash on unknown) hands/trunk/legs/b ilateral hand swelling and pain (unknown) (no (unknown) (unknown) Complete Blood (units (unknown) date) Count AUTO DIFF unknown) 11/10/22 M25.50 - Pain in unspecified joint (unknown) (no (unknown) (unknown) Comprehensive (units ( unknown) date) Metabolic Panel unknown) 11/10/22 M25.50 - Pain in unspecified joint (unknown) (no (unknown) (unknown) Confirmed (units (unkn own) date) 06/22/22] unknown) (unknown) (no (unknown) (unknown) : 1990 (units (unknown) date) Acct:[id number] unknown) (unknown) (no (unknown) (unknown) Decreased libido (units (unknown) date) unknown) (unknown) (no (unknown) (unknown) Dept at (units (unkno wn) date) . unknown) (unknown) (no (unknown) (unknown) Details: (units (unkno wn) date) unknown) (unknown) (no (unknown) (unknown) Documented By: (units (unknown) date) Sudhir Valdez unknown) 11/10/22 1333 (unknown) (no (unknown) (unknown) Draft (units (unkno wn) date) unknown) (unknown) (no (unknown) (unknown) Ectopic (units (unknown) date) unknown) (unknown) (no (unknown) (unknown) Erythrocyte (units (un known) date) Sedimentation Rate unknown) 11/10/22 M25.50 - Pain in unspecified joint (unknown) (no (unknown) (unknown) Family History (units (unknown) date) (Reviewed 06/27/22 unknown) @ 11:02 by DACIA Mitchell) (unknown) (no (unknown) (unknown) Family Practice (units (unknown) date) Office Visit unknown) (unknown) (no (unknown) (unknown) [facility] ([facility] unknown) (unknown) (no (unknown) (unknown) Grandfather (units (un known) date) History of heart unknown) disease (unknown) (no (unknown) (unknown) Grandmother (units (un known) date) Cancer unknown) (unknown) (no (unknown) (unknown) Grandmother (units (un known) date) Diabetes mellitus unknown) (unknown) (no (unknown) (unknown) H/O LEEP (units (unkno wn) date) unknown) (unknown) (no (unknown) (unknown) HLA B27 11/10/22 (units (unknown) date) M25.50 - Pain in unknown) unspecified joint (unknown) (no (unknown) (unknown) HPI (units (unkno wn) date) unknown) (unknown) (no (unknown) (unknown) Height 170.18 cm (units (unknown) date) unknown) (unknown) (no (unknown) (unknown) History of (units (unk nown) date) surgery () unknown) (unknown) (no (unknown) (unknown) Hyperplastic (units (u nknown) date) colon polyp unknown) (unknown) (no (unknown) (unknown) Intake Note: (units (u nknown) date) unknown) (unknown) (no (unknown) (unknown) Intake performed (units (unknown) date) by: Leticia Pepper unknown) (unknown) (no (unknown) (unknown) Intake (units (unkno wn) date) unknown) (unknown) (no (unknown) (unknown) Intake- Clincial (units (unknown) date) Staff unknown) (unknown) (no (unknown) (unknown) Last Menstural (units (unknown) date) Cycle + Details unknown) (unknown) (no (unknown) (unknown) Loc: [facility] (units (unkno wn) date) unknown) (unknown) (no (unknown) (unknown) Lymphocytic (units (un known) date) colitis unknown) (unknown) (no (unknown) (unknown) Medical History (units (unknown) date) (Reviewed 06/27/22 unknown) @ 11:02 by DACIA Mitchell) (unknown) (no (unknown) (unknown) Medications (units (un known) date) unknown) (unknown) (no (unknown) (unknown) No Known Drug (units ( unknown) date) Allergies Allergy unknown) (Verified 11/10/22 13:34) (unknown) (no (unknown) (unknown) Orders (units (unkno wn) date) unknown) (unknown) (no (unknown) (unknown) Orders: (units (unkno wn) date) unknown) (unknown) (no (unknown) (unknown) Other Menstrual (units (unknown) date) Period: Other unknown) (unknown) (no (unknown) (unknown) Oxygen Delivery (units (unknown) date) Method room air unknown) (unknown) (no (unknown) (unknown) PFSH (units (unkno wn) date) unknown) (unknown) (no (unknown) (unknown) Patient states (units (unknown) date) that she 1st noted unknown) (unknown) (no (unknown) (unknown) Patient: (units (unkno wn) date) Walker,Rm G unknown) MR#: [id number] (unknown) (no (unknown) (unknown) Position Sitting (units (unknown) date) unknown) (unknown) (no (unknown) (unknown) Pulse 87 (units (unkno wn) date) unknown) (unknown) (no (unknown) (unknown) Pulse Oximetry (units (unknown) date) (%) 98 unknown) (unknown) (no (unknown) (unknown) Pulse Source (units (u nknown) date) Monitor unknown) (unknown) (no (unknown) (unknown) Reason For Visit (units (unknown) date) unknown) (unknown) (no (unknown) (unknown) Referral (units (unkno wn) date) Dermatology L30.9 unknown) - Dermatitis, unspecified (unknown) (no (unknown) (unknown) Referrals (units (unkn own) date) unknown) (unknown) (no (unknown) (unknown) Rheumatoid Factor (units (unknown) date) 11/10/22 M25.50 - unknown) Pain in unspecified joint (unknown) (no (unknown) (unknown) She has been (units (u nknown) date) experiencing this unknown) since September. She has been given clobetasol (unknown) (no (unknown) (unknown) Signed By: (units (unk nown) date) unknown) (unknown) (no (unknown) (unknown) Smoking Status: (units (unknown) date) Former smoker unknown) (unknown) (no (unknown) (unknown) Social History (units (unknown) date) unknown) (unknown) (no (unknown) (unknown) Surgical History (units (unknown) date) (Reviewed 06/27/22 unknown) @ 11:02 by DACIA Mitchell) (unknown) (no (unknown) (unknown) TSH w/ Reflex to (units (unknown) date) FT4 11/10/22 unknown) M25.50 - Pain in unspecified joint (unknown) (no (unknown) (unknown) This note may (units ( unknown) date) have been all or unknown) partially generated using voice recognition (unknown) (no (unknown) (unknown) Tobacco + (units (unkn own) date) Substance Use unknown) (unknown) (no (unknown) (unknown) Tobacco Status (units (unknown) date) unknown) (unknown) (no (unknown) (unknown) Visit Reasons: (units (unknown) date) rash on unknown) hands/legs/torso (unknown) (no (unknown) (unknown) Vitals (units (unkno wn) date) unknown) (unknown) (no (unknown) (unknown) Weight 99.904 kg (units (unknown) date) unknown) (unknown) (no (unknown) (unknown) [History (units (unkno wn) date) Confirmed unknown) 11/10/22] (unknown) (no (unknown) (unknown) alcohol intake: (units (unknown) date) former unknown) (unknown) (no (unknown) (unknown) amoxicillin 875 (units (unknown) date) mg-potassium unknown) clavulanate 125 mg tablet 1 tab PO 11/10/22 (unknown) (no (unknown) (unknown) clobetasol 0.05 % (units (unknown) date) topical ointment g unknown) topical 11/10/22 [History Confirmed (unknown) (no (unknown) (unknown) clotrimazole 1 % (units (unknown) date) topical cream g unknown) topical 11/10/22 [History Confirmed 11/10/22] (unknown) (no (unknown) (unknown) cyclobenzaprine (units (unknown) date) 10 mg tablet 10 mg unknown) PO 11/10/22 [History Confirmed 11/10/22] (unknown) (no (unknown) (unknown) derm. (units (unkno wn) date) unknown) (unknown) (no (unknown) (unknown) first time she (units (unknown) date) went to a walk in unknown) clinic for this, they diagnosed her with 'hand (unknown) (no (unknown) (unknown) foot and mouth (units (unknown) date) disease', the unknown) second time the provider stated it was eczema. (unknown) (no (unknown) (unknown) have occurred. If (units (unknown) date) there are any unknown) questions, please contact the Medical Records (unknown) (no (unknown) (unknown) having some hip (units (unknown) date) pain. unknown) (unknown) (no (unknown) (unknown) household (units (unkn own) date) members: spouse unknown) (unknown) (no (unknown) (unknown) hyoscyamine (units (un known) date) sulfate 0.125 mg unknown) tablet 0.125 mg PO BID-QID PRN dyspepsia #30 tabs (unknown) (no (unknown) (unknown) intrauterine (units (u nknown) date) 02/25/21 [History unknown) Confirmed 11/10/22] (unknown) (no (unknown) (unknown) labwork ordered, (units (unknown) date) refer to unknown) rheumatology. continue topical clobetasol referred to (unknown) (no (unknown) (unknown) legs as well as (units (unknown) date) bilateral hand unknown) pain and swelling. (unknown) (no (unknown) (unknown) legs, resolving (units (unknown) date) postinfalmatory unknown) erythema with scale sides trunkk bilat. (unknown) (no (unknown) (unknown) levonorgestrel 21 (units (unknown) date) mcg/24 hours (8 unknown) yrs) 52 mg intrauterine device (Mirena) (unknown) (no (unknown) (unknown) may occur. (units (unk nown) date) Occasional unknown) wrong-word or 'sound-alike' substitutions may have (unknown) (no (unknown) (unknown) occurred due to (units (unknown) date) the inherent unknown) limitations of voice recognition software. Please (unknown) (no (unknown) (unknown) read the note (units ( unknown) date) carefully and unknown) recognize, using context, where these substitutions (unknown) (no (unknown) (unknown) software. (units (unkn own) date) Although every unknown) effort is made to edit content, torts law professor errors (unknown) (no (unknown) (unknown) times, thickened (units (unknown) date) nails, cracked unknown) fingertips, erythematous macules with scale on (unknown) (no (unknown) (unknown) topical (units (unkno wn) date) medication with unknown) some relief but is still struggling to control it. The (unknown) (no (unknown) (unknown) trazodone 50 mg (units (unknown) date) tablet 50 mg PO unknown) BEDTIME PRN sleep #30 tabs 06/02/22 [Rx (unknown) (no (unknown) (unknown) ttp bilateral mcp (units (unknown) date) and pip and dip unknown) joints, hands painful throughout, swell at Result panel 64 (unknown) (no (unknown) (unknown) (no value) (units (unk nown) date) unknown) (unknown) (no (unknown) (unknown) (1) Dermatitis: (units (unknown) date) unknown) (unknown) (no (unknown) (unknown) (2) Joint pain: (units (unknown) date) unknown) (unknown) (no (unknown) (unknown) (3) Lymphocytic (units (unknown) date) colitis: unknown) (unknown) (no (unknown) (unknown) 11/10/22 (units (unkno wn) date) unknown) (unknown) (no (unknown) (unknown) 11/10/22] (units (unkn own) date) unknown) (unknown) (no (unknown) (unknown) 11/26/21 [Rx (units (u nknown) date) Confirmed 06/22/22] unknown) (unknown) (no (unknown) (unknown) 13:38 (units (unkno wn) date) unknown) (unknown) (no (unknown) (unknown) 32 Y/O Female (units ( unknown) date) presents today with unknown) a rash/eczema on her hands, thighs and torso. (unknown) (no (unknown) (unknown) 32-year-old female (units (unknown) date) presents unknown) complaining of skin rashes affecting hands, trunk, (unknown) (no (unknown) (unknown) [id number] (units (unkno wn) date) unknown) (unknown) (no (unknown) (unknown) ?psoriasis??? (units ( unknown) date) unknown) (unknown) (no (unknown) (unknown) SYLVIE Screen, IFA, (units (unknown) date) Refl Tit Andreea unknown) 11/10/22 M25.50 - Pain in unspecified joint (unknown) (no (unknown) (unknown) Affect: normal (units (unknown) date) affect unknown) (unknown) (no (unknown) (unknown) Age/Sex: 32 / F (units (unknown) date) Date of Service: unknown) (unknown) (no (unknown) (unknown) All systems (units (un known) date) reviewed + are unknown) unremarkable except as noted in HPI and below (unknown) (no (unknown) (unknown) Allergies (units (unkn own) date) unknown) (unknown) (no (unknown) (unknown) [place], [place] (units ( unknown) date) [id number] unknown) (unknown) (no (unknown) (unknown) Anesthesia (units (unk nown) date) unknown) (unknown) (no (unknown) (unknown) Anterior aspect of (units (unknown) date) thighs: Scattered unknown) erythematous macules with scale. (unknown) (no (unknown) (unknown) Anxiety (-2015) (units (unknown) date) unknown) (unknown) (no (unknown) (unknown) Appearance: (units (un known) date) grossly normal unknown) (unknown) (no (unknown) (unknown) Assessment + Plan (units (unknown) date) unknown) (unknown) (no (unknown) (unknown) Attending Dr: (units ( unknown) date) Sudhir PEDERSON unknown) (unknown) (no (unknown) (unknown) Attitude: (units (unkn own) date) cooperative unknown) (unknown) (no (unknown) (unknown) BMI 34.4 (units (unkno wn) date) unknown) (unknown) (no (unknown) (unknown) BP 130/86 (units (unkn own) date) unknown) (unknown) (no (unknown) (unknown) Bilateral hands: (units (unknown) date) TTP MCP, PIP, DIP unknown) joints without swelling or erythema. Normal (unknown) (no (unknown) (unknown) Bilateral sides of (units (unknown) date) trunk: Resolving unknown) postinflammatory pink patches with scale. (unknown) (no (unknown) (unknown) Blood Pressure (units (unknown) date) Location Lt unknown) brachial (unknown) (no (unknown) (unknown) C-Reactive Protein (units (unknown) date) Quant 11/10/22 unknown) M25.50 - Pain in unspecified joint (unknown) (no (unknown) (unknown) CCP Antibodies (units (unknown) date) IgG/IgA 11/10/22 unknown) M25.50 - Pain in unspecified joint (unknown) (no (unknown) (unknown) Cardio (units (unkno wn) date) unknown) (unknown) (no (unknown) (unknown) Chief Complaint (units (unknown) date) unknown) (unknown) (no (unknown) (unknown) Chief Complaint: (units (unknown) date) Rash on unknown) hands/trunk/legs/bi lateral hand swelling and pain (unknown) (no (unknown) (unknown) Cognition: normal (units (unknown) date) cognition unknown) (unknown) (no (unknown) (unknown) Complete Blood (units (unknown) date) Count AUTO DIFF unknown) 11/10/22 M25.50 - Pain in unspecified joint (unknown) (no (unknown) (unknown) Comprehensive (units ( unknown) date) Metabolic Panel unknown) 11/10/22 M25.50 - Pain in unspecified joint (unknown) (no (unknown) (unknown) Confirmed (units (unkn own) date) 06/22/22] unknown) (unknown) (no (unknown) (unknown) Const (units (unkno wn) date) unknown) (unknown) (no (unknown) (unknown) : 1990 (units (unknown) date) Acct:[id number] unknown) (unknown) (no (unknown) (unknown) Decreased libido (units (unknown) date) unknown) (unknown) (no (unknown) (unknown) Denies (units (unkno wn) date) fevers/chills. unknown) (unknown) (no (unknown) (unknown) Dept at (units (unkno wn) date) . unknown) (unknown) (no (unknown) (unknown) Details: (units (unkno wn) date) unknown) (unknown) (no (unknown) (unknown) Documented By: (units (unknown) date) Sudhir Valdez unknown) 11/10/22 1333 (unknown) (no (unknown) (unknown) Draft (units (unkno wn) date) unknown) (unknown) (no (unknown) (unknown) Ectopic (units (unknown) date) unknown) (unknown) (no (unknown) (unknown) Effort + (units (unkno wn) date) Inspection: normal unknown) respiratory effort (unknown) (no (unknown) (unknown) Erythrocyte (units (un known) date) Sedimentation Rate unknown) 11/10/22 M25.50 - Pain in unspecified joint (unknown) (no (unknown) (unknown) Exam (units (unkno wn) date) unknown) (unknown) (no (unknown) (unknown) Eyes (units (unkno wn) date) unknown) (unknown) (no (unknown) (unknown) Family History (units (unknown) date) (Reviewed 11/13/22 unknown) @ 16:44 by DACIA Mitchell) (unknown) (no (unknown) (unknown) Family Practice (units (unknown) date) Office Visit unknown) (unknown) (no (unknown) (unknown) [facility] (units ([facility] date[facility] unknown) (unknown) (no (unknown) (unknown) Fingers of (units (unk nown) date) bilateral hands: unknown) Thickened nails, erythematous cracked fingertips (unknown) (no (unknown) (unknown) Gait: normal gait (units (unknown) date) unknown) (unknown) (no (unknown) (unknown) General: (units (unkno wn) date) appearance normal, unknown) both eyes and all related structures (unknown) (no (unknown) (unknown) General: (units (unkno wn) date) cooperative and no unknown) acute distress (unknown) (no (unknown) (unknown) General: patient (units (unknown) date) alert, patient unknown) awake and patient oriented x3 (unknown) (no (unknown) (unknown) Grandfather (units (un known) date) History of heart unknown) disease (unknown) (no (unknown) (unknown) Grandmother Cancer (units (unknown) date) unknown) (unknown) (no (unknown) (unknown) Grandmother (units (un known) date) Diabetes mellitus unknown) (unknown) (no (unknown) (unknown) H/O LEEP (units (unkno wn) date) unknown) (unknown) (no (unknown) (unknown) HENMT (units (unkno wn) date) unknown) (unknown) (no (unknown) (unknown) HLA B27 11/10/22 (units (unknown) date) M25.50 - Pain in unknown) unspecified joint (unknown) (no (unknown) (unknown) HPI (units (unkno wn) date) unknown) (unknown) (no (unknown) (unknown) Head: normal to (units (unknown) date) inspection unknown) (unknown) (no (unknown) (unknown) Height 170.18 cm (units (unknown) date) unknown) (unknown) (no (unknown) (unknown) History of surgery (units (unknown) date) () unknown) (unknown) (no (unknown) (unknown) Hyperplastic colon (units (unknown) date) polyp unknown) (unknown) (no (unknown) (unknown) In addition to the (units (unknown) date) skin unknown) manifestations, her hands have been painful throughout, (unknown) (no (unknown) (unknown) Intake Note: (units (u nknown) date) unknown) (unknown) (no (unknown) (unknown) Intake performed (units (unknown) date) by: Leticia Pepper unknown) (unknown) (no (unknown) (unknown) Intake (units (unkno wn) date) unknown) (unknown) (no (unknown) (unknown) Intake- Clincial (units (unknown) date) Staff unknown) (unknown) (no (unknown) (unknown) Joint pain (units (unk nown) date) location: hand unknown) Laterality: bilateral Qualified Code(s): (unknown) (no (unknown) (unknown) Last Menstural (units (unknown) date) Cycle + Details unknown) (unknown) (no (unknown) (unknown) Loc: [facility] (units (unkno wn) date) unknown) (unknown) (no (unknown) (unknown) Lymphocytic (units (un known) date) colitis unknown) (unknown) (no (unknown) (unknown) M25.541 - Pain in (units (unknown) date) joints of right unknown) hand; M25.542 - Pain in joints of left hand (unknown) (no (unknown) (unknown) Medical History (units (unknown) date) (Reviewed 11/13/22 unknown) @ 16:44 by DACIA Mitchell) (unknown) (no (unknown) (unknown) Medications (units (un known) date) unknown) (unknown) (no (unknown) (unknown) Mental Status: (units (unknown) date) mental status unknown) grossly normal (unknown) (no (unknown) (unknown) Mood: congruent (units (unknown) date) mood unknown) (unknown) (no (unknown) (unknown) Musc (units (unkno wn) date) unknown) (unknown) (no (unknown) (unknown) Neuro (units (unkno wn) date) unknown) (unknown) (no (unknown) (unknown) No Known Drug (units ( unknown) date) Allergies Allergy unknown) (Verified 11/10/22 13:34) (unknown) (no (unknown) (unknown) Orders (units (unkno wn) date) unknown) (unknown) (no (unknown) (unknown) Orders: (units (unkno wn) date) unknown) (unknown) (no (unknown) (unknown) Other Menstrual (units (unknown) date) Period: Other unknown) (unknown) (no (unknown) (unknown) Other: (units (unkno wn) date) unknown) (unknown) (no (unknown) (unknown) Oxygen Delivery (units (unknown) date) Method room air unknown) (unknown) (no (unknown) (unknown) PFSH (units (unkno wn) date) unknown) (unknown) (no (unknown) (unknown) Patient does have a (units (unknown) date) history of unknown) lymphocytic colitis and wondered if this could be (unknown) (no (unknown) (unknown) Patient states (units (unknown) date) that she 1st noted unknown) rash in September.? She went to walk-in clinic (unknown) (no (unknown) (unknown) Patient: (units (unkno wn) date) HarrisRm Holbrook MR#: unknown) [id number] (unknown) (no (unknown) (unknown) Plan (units (unkno wn) date) unknown) (unknown) (no (unknown) (unknown) Position Sitting (units (unknown) date) unknown) (unknown) (no (unknown) (unknown) Psych (units (unkno wn) date) unknown) (unknown) (no (unknown) (unknown) Pulse 87 (units (unkno wn) date) unknown) (unknown) (no (unknown) (unknown) Pulse Oximetry (%) (units (unknown) date) 98 unknown) (unknown) (no (unknown) (unknown) Pulse Source (units (u nknown) date) Monitor unknown) (unknown) (no (unknown) (unknown) Qualifiers: (units (un known) date) unknown) (unknown) (no (unknown) (unknown) ROS (units (unkno wn) date) unknown) (unknown) (no (unknown) (unknown) Rate: regular rate (units (unknown) date) unknown) (unknown) (no (unknown) (unknown) Reason For Visit (units (unknown) date) unknown) (unknown) (no (unknown) (unknown) Referral (units (unkno wn) date) Dermatology L30.9 - unknown) Dermatitis, unspecified (unknown) (no (unknown) (unknown) Referrals (units (unkn own) date) unknown) (unknown) (no (unknown) (unknown) Resp (units (unkno wn) date) unknown) (unknown) (no (unknown) (unknown) Rheumatoid Factor (units (unknown) date) 11/10/22 M25.50 - unknown) Pain in unspecified joint (unknown) (no (unknown) (unknown) She has been (units (u nknown) date) experiencing this unknown) since September. She has been given clobetasol (unknown) (no (unknown) (unknown) Signed By: (units (unk nown) date) unknown) (unknown) (no (unknown) (unknown) Skin (units (unkno wn) date) unknown) (unknown) (no (unknown) (unknown) Smoking Status: (units (unknown) date) Former smoker unknown) (unknown) (no (unknown) (unknown) Social History (units (unknown) date) unknown) (unknown) (no (unknown) (unknown) Speech: speech (units (unknown) date) normal unknown) (unknown) (no (unknown) (unknown) Status: Acute (units ( unknown) date) unknown) (unknown) (no (unknown) (unknown) Surgical History (units (unknown) date) (Reviewed 11/13/22 unknown) @ 16:44 by DACIA Mitchell) (unknown) (no (unknown) (unknown) TSH w/ Reflex to (units (unknown) date) FT4 11/10/22 M25.50 unknown) - Pain in unspecified joint (unknown) (no (unknown) (unknown) This note may have (units (unknown) date) been all or unknown) partially generated using voice recognition (unknown) (no (unknown) (unknown) Thought Content: (units (unknown) date) normal unknown) (unknown) (no (unknown) (unknown) Thought Process: (units (unknown) date) normal unknown) (unknown) (no (unknown) (unknown) Tobacco + (units (unkn own) date) Substance Use unknown) (unknown) (no (unknown) (unknown) Tobacco Status (units (unknown) date) unknown) (unknown) (no (unknown) (unknown) Visit Reasons: (units (unknown) date) rash on unknown) hands/legs/torso (unknown) (no (unknown) (unknown) Vitals (units (unkno wn) date) unknown) (unknown) (no (unknown) (unknown) Weight 99.904 kg (units (unknown) date) unknown) (unknown) (no (unknown) (unknown) [History Confirmed (units (unknown) date) 11/10/22] unknown) (unknown) (no (unknown) (unknown) a mouth lesion, (units (unknown) date) although never any unknown) lesions on palmar/plantar surfaces of (unknown) (no (unknown) (unknown) alcohol intake: (units (unknown) date) former unknown) (unknown) (no (unknown) (unknown) amoxicillin 875 (units (unknown) date) mg-potassium unknown) clavulanate 125 mg tablet 1 tab PO 11/10/22 (unknown) (no (unknown) (unknown) and skin (units (unkno wn) date) surrounding nail unknown) beds. (unknown) (no (unknown) (unknown) at [facility] (units (unknown) date) and was told it was unknown) hand foot and mouth disease, as at that (unknown) (no (unknown) (unknown) cap refill less (units (unknown) date) than 2 seconds, unknown) sensation intact to light touch, motor function (unknown) (no (unknown) (unknown) clobetasol 0.05 % (units (unknown) date) topical ointment g unknown) topical 11/10/22 [History Confirmed (unknown) (no (unknown) (unknown) clotrimazole 1 % (units (unknown) date) topical cream g unknown) topical 11/10/22 [History Confirmed 11/10/22] (unknown) (no (unknown) (unknown) cyclobenzaprine 10 (units (unknown) date) mg tablet 10 mg PO unknown) 11/10/22 [History Confirmed 11/10/22] (unknown) (no (unknown) (unknown) derm. (units (unkno wn) date) unknown) (unknown) (no (unknown) (unknown) distal fingers.? (units (unknown) date) She is also gotten unknown) diffuse swelling in the hands (unknown) (no (unknown) (unknown) exposures, new (units (unknown) date) foods or unknown) medications. (unknown) (no (unknown) (unknown) first time she (units (unknown) date) went to a walk in unknown) clinic for this, they diagnosed her with 'hand (unknown) (no (unknown) (unknown) foot and mouth (units (unknown) date) disease', the unknown) second time the provider stated it was eczema. (unknown) (no (unknown) (unknown) for her hands (units ( unknown) date) which has led to unknown) improvement but hand and fingernail symptoms are (unknown) (no (unknown) (unknown) hands/feet.? At a (units (unknown) date) later date she went unknown) to walk-in clinic or ED again and was told (unknown) (no (unknown) (unknown) have occurred. If (units (unknown) date) there are any unknown) questions, please contact the Medical Records (unknown) (no (unknown) (unknown) having some hip (units (unknown) date) pain. unknown) (unknown) (no (unknown) (unknown) household members: (units (unknown) date) spouse unknown) (unknown) (no (unknown) (unknown) hyoscyamine (units (un known) date) sulfate 0.125 mg unknown) tablet 0.125 mg PO BID-QID PRN dyspepsia #30 tabs (unknown) (no (unknown) (unknown) intact. (units (unkno wn) date) unknown) (unknown) (no (unknown) (unknown) intermittently. (units (unknown) date) unknown) (unknown) (no (unknown) (unknown) intrauterine (units (u nknown) date) 02/25/21 [History unknown) Confirmed 11/10/22] (unknown) (no (unknown) (unknown) labwork ordered, (units (unknown) date) refer to unknown) rheumatology. continue topical clobetasol referred to (unknown) (no (unknown) (unknown) legs as well as (units (unknown) date) bilateral hand pain unknown) and swelling. (unknown) (no (unknown) (unknown) legs, resolving (units (unknown) date) postinfalmatory unknown) erythema with scale sides trunkk bilat. (unknown) (no (unknown) (unknown) levonorgestrel 21 (units (unknown) date) mcg/24 hours (8 unknown) yrs) 52 mg intrauterine device (Mirena) (unknown) (no (unknown) (unknown) may occur. (units (unk nown) date) Occasional unknown) wrong-word or 'sound-alike' substitutions may have (unknown) (no (unknown) (unknown) not confined to the (units (unknown) date) areas with skin unknown) manifestations which have been restricted to (unknown) (no (unknown) (unknown) occurred due to (units (unknown) date) the inherent unknown) limitations of voice recognition software. Please (unknown) (no (unknown) (unknown) range of motion of (units (unknown) date) hands/fingers but unknown) pain with movement. Radial pulses 2+/2+, (unknown) (no (unknown) (unknown) read the note (units ( unknown) date) carefully and unknown) recognize, using context, where these substitutions (unknown) (no (unknown) (unknown) related.? Patient (units (unknown) date) has no known unknown) rheumatological disease at this time.? She denies (unknown) (no (unknown) (unknown) software. Although (units (unknown) date) every effort is unknown) made to edit content, torts law professor errors (unknown) (no (unknown) (unknown) still severe.? No (units (unknown) date) known changes in unknown) personal hygiene or household products.? No (unknown) (no (unknown) (unknown) swelling/erythema (units (unknown) date) in any other joints unknown) although has had some hip pain at times.? (unknown) (no (unknown) (unknown) that this appeared (units (unknown) date) to be severe unknown) eczema.? She was prescribed topical clobetasol (unknown) (no (unknown) (unknown) time she had a (units (unknown) date) diffusely unknown) erythematous rash on the sides of her torso as well as (unknown) (no (unknown) (unknown) times, thickened (units (unknown) date) nails, cracked unknown) fingertips, erythematous macules with scale on (unknown) (no (unknown) (unknown) topical medication (units (unknown) date) with some relief unknown) but is still struggling to control it. The (unknown) (no (unknown) (unknown) trazodone 50 mg (units (unknown) date) tablet 50 mg PO unknown) BEDTIME PRN sleep #30 tabs 06/02/22 [Rx (unknown) (no (unknown) (unknown) ttp bilateral mcp (units (unknown) date) and pip and dip unknown) joints, hands painful throughout, swell at Result panel 65 (unknown) (no (unknown) (unknown) (no value) (units (unk nown) date) unknown) (unknown) (no (unknown) (unknown) (1) Dermatitis: (units (unknown) date) unknown) (unknown) (no (unknown) (unknown) (2) Joint pain: (units (unknown) date) unknown) (unknown) (no (unknown) (unknown) (3) Lymphocytic (units (unknown) date) colitis: unknown) (unknown) (no (unknown) (unknown) 11/10/22 (units (unkno wn) date) unknown) (unknown) (no (unknown) (unknown) 11/10/22] (units (unkn own) date) unknown) (unknown) (no (unknown) (unknown) 11/13/22 1700 (units ( unknown) date) unknown) (unknown) (no (unknown) (unknown) 11/26/21 [Rx (units (u nknown) date) Confirmed 06/22/22] unknown) (unknown) (no (unknown) (unknown) 13:38 (units (unkno wn) date) unknown) (unknown) (no (unknown) (unknown) 32 Y/O Female (units ( unknown) date) presents today with unknown) a rash/eczema on her hands, thighs and torso. (unknown) (no (unknown) (unknown) 32-year-old female (units (unknown) date) presents unknown) complaining of skin rashes affecting hands, trunk, (unknown) (no (unknown) (unknown) [id number] (units (unkno wn) date) unknown) (unknown) (no (unknown) (unknown) SYLVIE Screen, IFA, (units (unknown) date) Refl Tit Andreea unknown) 11/10/22 M25.50 - Pain in unspecified joint (unknown) (no (unknown) (unknown) Affect: normal (units (unknown) date) affect unknown) (unknown) (no (unknown) (unknown) Age/Sex: 32 / F (units (unknown) date) Date of Service: unknown) (unknown) (no (unknown) (unknown) All systems (units (un known) date) reviewed + are unknown) unremarkable except as noted in HPI and below (unknown) (no (unknown) (unknown) Allergies (units (unkn own) date) unknown) (unknown) (no (unknown) (unknown) [place] (units ( unknown) date) [id number] unknown) (unknown) (no (unknown) (unknown) Anesthesia (units (unk nown) date) unknown) (unknown) (no (unknown) (unknown) Anterior aspect of (units (unknown) date) thighs: Scattered unknown) erythematous macules with scale. (unknown) (no (unknown) (unknown) Anxiety (-2014) (units (unknown) date) unknown) (unknown) (no (unknown) (unknown) Appearance: (units (un known) date) grossly normal unknown) (unknown) (no (unknown) (unknown) Assessment + Plan (units (unknown) date) unknown) (unknown) (no (unknown) (unknown) Attending Dr: (units ( unknown) date) Sudhir PEDERSON unknown) (unknown) (no (unknown) (unknown) Attitude: (units (unkn own) date) cooperative unknown) (unknown) (no (unknown) (unknown) BMI 34.4 (units (unkno wn) date) unknown) (unknown) (no (unknown) (unknown) BP 130/86 (units (unkn own) date) unknown) (unknown) (no (unknown) (unknown) Bilateral hands: (units (unknown) date) TTP MCP, PIP, DIP unknown) joints without swelling or erythema. Normal (unknown) (no (unknown) (unknown) Bilateral sides of (units (unknown) date) trunk: Resolving unknown) postinflammatory pink patches with scale. (unknown) (no (unknown) (unknown) Blood Pressure (units (unknown) date) Location Lt unknown) brachial (unknown) (no (unknown) (unknown) C-Reactive Protein (units (unknown) date) Quant 11/10/22 unknown) M25.50 - Pain in unspecified joint (unknown) (no (unknown) (unknown) CCP Antibodies (units (unknown) date) IgG/IgA 11/10/22 unknown) M25.50 - Pain in unspecified joint (unknown) (no (unknown) (unknown) Cardio (units (unkno wn) date) unknown) (unknown) (no (unknown) (unknown) Chief Complaint (units (unknown) date) unknown) (unknown) (no (unknown) (unknown) Chief Complaint: (units (unknown) date) Rash on unknown) hands/trunk/legs/bi lateral hand swelling and pain (unknown) (no (unknown) (unknown) Cognition: normal (units (unknown) date) cognition unknown) (unknown) (no (unknown) (unknown) Complete Blood (units (unknown) date) Count AUTO DIFF unknown) 11/10/22 M25.50 - Pain in unspecified joint (unknown) (no (unknown) (unknown) Comprehensive (units ( unknown) date) Metabolic Panel unknown) 11/10/22 M25.50 - Pain in unspecified joint (unknown) (no (unknown) (unknown) Confirmed (units (unkn own) date) 06/22/22] unknown) (unknown) (no (unknown) (unknown) Const (units (unkno wn) date) unknown) (unknown) (no (unknown) (unknown) : 1990 (units (unknown) date) Acct:[id number] unknown) (unknown) (no (unknown) (unknown) Decreased libido (units (unknown) date) unknown) (unknown) (no (unknown) (unknown) Denies (units (unkno wn) date) fevers/chills. unknown) (unknown) (no (unknown) (unknown) Dept at (units (unkno wn) date) . unknown) (unknown) (no (unknown) (unknown) Details: (units (unkno wn) date) unknown) (unknown) (no (unknown) (unknown) Do find it (units (unk nown) date) reasonably likely unknown) that this is a manifestation of an (unknown) (no (unknown) (unknown) Documented By: (units (unknown) date) Sudhir Valdez unknown) 11/10/22 1333 (unknown) (no (unknown) (unknown) Ectopic (units (unknown) date) unknown) (unknown) (no (unknown) (unknown) Effort + (units (unkno wn) date) Inspection: normal unknown) respiratory effort (unknown) (no (unknown) (unknown) Erythrocyte (units (un known) date) Sedimentation Rate unknown) 11/10/22 M25.50 - Pain in unspecified joint (unknown) (no (unknown) (unknown) Exam (units (unkno wn) date) unknown) (unknown) (no (unknown) (unknown) Eyes (units (unkno wn) date) unknown) (unknown) (no (unknown) (unknown) Family History (units (unknown) date) (Reviewed 11/13/22 unknown) @ 16:44 by DACIA Mitchell) (unknown) (no (unknown) (unknown) Family Practice (units (unknown) date) Office Visit unknown) (unknown) (no (unknown) (unknown) [facility]) (unknown) (no (unknown) (unknown) Fingers of (units (unk nown) date) bilateral hands: unknown) Thickened nails, erythematous cracked fingertips (unknown) (no (unknown) (unknown) Gait: normal gait (units (unknown) date) unknown) (unknown) (no (unknown) (unknown) General: (units (unkno wn) date) appearance normal, unknown) both eyes and all related structures (unknown) (no (unknown) (unknown) General: (units (unkno wn) date) cooperative and no unknown) acute distress (unknown) (no (unknown) (unknown) General: patient (units (unknown) date) alert, patient unknown) awake and patient oriented x3 (unknown) (no (unknown) (unknown) Grandfather (units (un known) date) History of heart unknown) disease (unknown) (no (unknown) (unknown) Grandmother Cancer (units (unknown) date) unknown) (unknown) (no (unknown) (unknown) Grandmother (units (un known) date) Diabetes mellitus unknown) (unknown) (no (unknown) (unknown) H/O LEEP (units (unkno wn) date) unknown) (unknown) (no (unknown) (unknown) HENMT (units (unkno wn) date) unknown) (unknown) (no (unknown) (unknown) HLA B27 11/10/22 (units (unknown) date) M25.50 - Pain in unknown) unspecified joint (unknown) (no (unknown) (unknown) HLA B27 have not (units (unknown) date) yet been resulted.? unknown) She will continue clobetasol topical (unknown) (no (unknown) (unknown) HPI (units (unkno wn) date) unknown) (unknown) (no (unknown) (unknown) Head: normal to (units (unknown) date) inspection unknown) (unknown) (no (unknown) (unknown) Height 170.18 cm (units (unknown) date) unknown) (unknown) (no (unknown) (unknown) History of surgery (units (unknown) date) () unknown) (unknown) (no (unknown) (unknown) Hyperplastic colon (units (unknown) date) polyp unknown) (unknown) (no (unknown) (unknown) In addition to the (units (unknown) date) skin unknown) manifestations, her hands have been painful throughout, (unknown) (no (unknown) (unknown) Intake Note: (units (u nknown) date) unknown) (unknown) (no (unknown) (unknown) Intake performed (units (unknown) date) by: Leticia Pepper unknown) (unknown) (no (unknown) (unknown) Intake (units (unkno wn) date) unknown) (unknown) (no (unknown) (unknown) Intake- Clincial (units (unknown) date) Staff unknown) (unknown) (no (unknown) (unknown) Joint pain (units (unk nown) date) location: hand unknown) Laterality: bilateral Qualified Code(s): (unknown) (no (unknown) (unknown) Labs have not yet (units (unknown) date) all been resulted unknown) but thus far show mild elevation of ESR, (unknown) (no (unknown) (unknown) Last Menstural (units (unknown) date) Cycle + Details unknown) (unknown) (no (unknown) (unknown) Loc: [facility] (units (unkno wn) date) unknown) (unknown) (no (unknown) (unknown) Lymphocytic (units (un known) date) colitis unknown) (unknown) (no (unknown) (unknown) M25.541 - Pain in (units (unknown) date) joints of right unknown) hand; M25.542 - Pain in joints of left hand (unknown) (no (unknown) (unknown) Medical History (units (unknown) date) (Reviewed 11/13/22 unknown) @ 16:44 by DACIA Mitchell) (unknown) (no (unknown) (unknown) Medications (units (un known) date) unknown) (unknown) (no (unknown) (unknown) Mental Status: (units (unknown) date) mental status unknown) grossly normal (unknown) (no (unknown) (unknown) Mood: congruent (units (unknown) date) mood unknown) (unknown) (no (unknown) (unknown) Musc (units (unkno wn) date) unknown) (unknown) (no (unknown) (unknown) Neuro (units (unkno wn) date) unknown) (unknown) (no (unknown) (unknown) No Known Drug (units ( unknown) date) Allergies Allergy unknown) (Verified 11/10/22 13:34) (unknown) (no (unknown) (unknown) Orders (units (unkno wn) date) unknown) (unknown) (no (unknown) (unknown) Orders: (units (unkno wn) date) unknown) (unknown) (no (unknown) (unknown) Other Menstrual (units (unknown) date) Period: Other unknown) (unknown) (no (unknown) (unknown) Other: (units (unkno wn) date) unknown) (unknown) (no (unknown) (unknown) Oxygen Delivery (units (unknown) date) Method room air unknown) (unknown) (no (unknown) (unknown) PFSH (units (unkno wn) date) unknown) (unknown) (no (unknown) (unknown) Patient does have a (units (unknown) date) history of unknown) lymphocytic colitis and wondered if this could be (unknown) (no (unknown) (unknown) Patient states (units (unknown) date) that she 1st noted unknown) rash in September.? She went to walk-in clinic (unknown) (no (unknown) (unknown) Patient: (units (unkno wn) date) Rm Teixeira MR#: unknown) M000 (unknown) (no (unknown) (unknown) Plan (units (unkno wn) date) unknown) (unknown) (no (unknown) (unknown) Position Sitting (units (unknown) date) unknown) (unknown) (no (unknown) (unknown) Psych (units (unkno wn) date) unknown) (unknown) (no (unknown) (unknown) Pulse 87 (units (unkno wn) date) unknown) (unknown) (no (unknown) (unknown) Pulse Oximetry (%) (units (unknown) date) 98 unknown) (unknown) (no (unknown) (unknown) Pulse Source (units (u nknown) date) Monitor unknown) (unknown) (no (unknown) (unknown) Qualifiers: (units (un known) date) unknown) (unknown) (no (unknown) (unknown) ROS (units (unkno wn) date) unknown) (unknown) (no (unknown) (unknown) Rate: regular rate (units (unknown) date) unknown) (unknown) (no (unknown) (unknown) Reason For Visit (units (unknown) date) unknown) (unknown) (no (unknown) (unknown) Referral (units (unkno wn) date) Dermatology L30.9 - unknown) Dermatitis, unspecified (unknown) (no (unknown) (unknown) Referral (units (unkno wn) date) Rheumatology unknown) K52.832 - Lymphocytic colitis, L30.9 - Dermatitis, (unknown) (no (unknown) (unknown) Referrals (units (unkn own) date) unknown) (unknown) (no (unknown) (unknown) Resp (units (unkno wn) date) unknown) (unknown) (no (unknown) (unknown) Rheumatoid Factor (units (unknown) date) 11/10/22 M25.50 - unknown) Pain in unspecified joint (unknown) (no (unknown) (unknown) She has been (units (u nknown) date) experiencing this unknown) since September. She has been given clobetasol (unknown) (no (unknown) (unknown) Signed By: (units (unk nown) date) <Electronically unknown) signed by Sudhir Valdez> (unknown) (no (unknown) (unknown) Signed (units (unkno wn) date) unknown) (unknown) (no (unknown) (unknown) Skin (units (unkno wn) date) unknown) (unknown) (no (unknown) (unknown) Smoking Status: (units (unknown) date) Former smoker unknown) (unknown) (no (unknown) (unknown) Social History (units (unknown) date) unknown) (unknown) (no (unknown) (unknown) Speech: speech (units (unknown) date) normal unknown) (unknown) (no (unknown) (unknown) Status: Acute (units ( unknown) date) unknown) (unknown) (no (unknown) (unknown) Surgical History (units (unknown) date) (Reviewed 11/13/22 unknown) @ 16:44 by DACIA Mitchell) (unknown) (no (unknown) (unknown) TSH w/ Reflex to (units (unknown) date) FT4 11/10/22 M25.50 unknown) - Pain in unspecified joint (unknown) (no (unknown) (unknown) This note may have (units (unknown) date) been all or unknown) partially generated using voice recognition (unknown) (no (unknown) (unknown) Thought Content: (units (unknown) date) normal unknown) (unknown) (no (unknown) (unknown) Thought Process: (units (unknown) date) normal unknown) (unknown) (no (unknown) (unknown) Tobacco + (units (unkn own) date) Substance Use unknown) (unknown) (no (unknown) (unknown) Tobacco Status (units (unknown) date) unknown) (unknown) (no (unknown) (unknown) Visit Reasons: (units (unknown) date) rash on unknown) hands/legs/torso (unknown) (no (unknown) (unknown) Vitals (units (unkno wn) date) unknown) (unknown) (no (unknown) (unknown) Weight 99.904 kg (units (unknown) date) unknown) (unknown) (no (unknown) (unknown) [History Confirmed (units (unknown) date) 11/10/22] unknown) (unknown) (no (unknown) (unknown) a mouth lesion, (units (unknown) date) although never any unknown) lesions on palmar/plantar surfaces of (unknown) (no (unknown) (unknown) alcohol intake: (units (unknown) date) former unknown) (unknown) (no (unknown) (unknown) amoxicillin 875 (units (unknown) date) mg-potassium unknown) clavulanate 125 mg tablet 1 tab PO 11/10/22 (unknown) (no (unknown) (unknown) and Rheumatology. (units (unknown) date) unknown) (unknown) (no (unknown) (unknown) and skin (units (unkno wn) date) surrounding nail unknown) beds. (unknown) (no (unknown) (unknown) application of (units (unknown) date) emollients unknown) liberally. ?Will contact the patient with results and (unknown) (no (unknown) (unknown) at [facility] (units (unknown) date) and was told it was unknown) hand foot and mouth disease, as at that (unknown) (no (unknown) (unknown) autoimmune/rheumat (units (unknown) date) ological process.? unknown) I am not certain of the dermatological (unknown) (no (unknown) (unknown) cap refill less (units (unknown) date) than 2 seconds, unknown) sensation intact to light touch, motor function (unknown) (no (unknown) (unknown) clobetasol 0.05 % (units (unknown) date) topical ointment g unknown) topical 11/10/22 [History Confirmed (unknown) (no (unknown) (unknown) clotrimazole 1 % (units (unknown) date) topical cream g unknown) topical 11/10/22 [History Confirmed 11/10/22] (unknown) (no (unknown) (unknown) cyclobenzaprine 10 (units (unknown) date) mg tablet 10 mg PO unknown) 11/10/22 [History Confirmed 11/10/22] (unknown) (no (unknown) (unknown) diagnosis but do (units (unknown) date) not find it likely unknown) to be simply severe eczema.? Question (unknown) (no (unknown) (unknown) distal fingers.? (units (unknown) date) She is also gotten unknown) diffuse swelling in the hands (unknown) (no (unknown) (unknown) exposures, new (units (unknown) date) foods or unknown) medications. (unknown) (no (unknown) (unknown) first time she (units (unknown) date) went to a walk in unknown) clinic for this, they diagnosed her with 'hand (unknown) (no (unknown) (unknown) foot and mouth (units (unknown) date) disease', the unknown) second time the provider stated it was eczema. (unknown) (no (unknown) (unknown) for her hands (units ( unknown) date) which has led to unknown) improvement but hand and fingernail symptoms are (unknown) (no (unknown) (unknown) hands/feet.? At a (units (unknown) date) later date she went unknown) to walk-in clinic or ED again and was told (unknown) (no (unknown) (unknown) have occurred. If (units (unknown) date) there are any unknown) questions, please contact the Medical Records (unknown) (no (unknown) (unknown) household members: (units (unknown) date) spouse unknown) (unknown) (no (unknown) (unknown) hyoscyamine (units (un known) date) sulfate 0.125 mg unknown) tablet 0.125 mg PO BID-QID PRN dyspepsia #30 tabs (unknown) (no (unknown) (unknown) intact. (units (unkno wn) date) unknown) (unknown) (no (unknown) (unknown) intermittently. (units (unknown) date) unknown) (unknown) (no (unknown) (unknown) intrauterine (units (u nknown) date) 02/25/21 [History unknown) Confirmed 11/10/22] (unknown) (no (unknown) (unknown) left hand (units (unkn own) date) unknown) (unknown) (no (unknown) (unknown) legs as well as (units (unknown) date) bilateral hand pain unknown) and swelling. (unknown) (no (unknown) (unknown) levonorgestrel 21 (units (unknown) date) mcg/24 hours (8 unknown) yrs) 52 mg intrauterine device (Mirena) (unknown) (no (unknown) (unknown) may occur. (units (unk nown) date) Occasional unknown) wrong-word or 'sound-alike' substitutions may have (unknown) (no (unknown) (unknown) mildly elevated (units (unknown) date) eosinophils, unknown) negative rheumatoid factor and SYLVIE.? Anti CCP and (unknown) (no (unknown) (unknown) not confined to the (units (unknown) date) areas with skin unknown) manifestations which have been restricted to (unknown) (no (unknown) (unknown) occurred due to (units (unknown) date) the inherent unknown) limitations of voice recognition software. Please (unknown) (no (unknown) (unknown) ointment for her (units (unknown) date) hands and general unknown) measures to mitigate this issue including (unknown) (no (unknown) (unknown) psoriasis. ?We (units ( unknown) date) agreed to obtain unknown) pertinent lab work and refer to both Dermatology (unknown) (no (unknown) (unknown) range of motion of (units (unknown) date) hands/fingers but unknown) pain with movement. Radial pulses 2+/2+, (unknown) (no (unknown) (unknown) read the note (units ( unknown) date) carefully and unknown) recognize, using context, where these substitutions (unknown) (no (unknown) (unknown) recommendations.? (units (unknown) date) Follow-up as needed unknown) for new or worsening symptoms prior to (unknown) (no (unknown) (unknown) related.? Patient (units (unknown) date) has no known unknown) rheumatological disease at this time.? She denies (unknown) (no (unknown) (unknown) seeing (units (unkno wn) date) specialists. unknown) (unknown) (no (unknown) (unknown) software. Although (units (unknown) date) every effort is unknown) made to edit content, torts law professor errors (unknown) (no (unknown) (unknown) still severe.? No (units (unknown) date) known changes in unknown) personal hygiene or household products.? No (unknown) (no (unknown) (unknown) swelling/erythema (units (unknown) date) in any other joints unknown) although has had some hip pain at times.? (unknown) (no (unknown) (unknown) that this appeared (units (unknown) date) to be severe unknown) eczema.? She was prescribed topical clobetasol (unknown) (no (unknown) (unknown) time she had a (units (unknown) date) diffusely unknown) erythematous rash on the sides of her torso as well as (unknown) (no (unknown) (unknown) topical medication (units (unknown) date) with some relief unknown) but is still struggling to control it. The (unknown) (no (unknown) (unknown) trazodone 50 mg (units (unknown) date) tablet 50 mg PO unknown) BEDTIME PRN sleep #30 tabs 06/02/22 [Rx (unknown) (no (unknown) (unknown) unspecified, (units (un known) date) M25.541 - Pain in unknown) joints of right hand, M25.542 - Pain in joints of Result panel 66 (unknown) (no date) (unknown) (unknown) 57 units (unkn own) (unknown) (no date) (unknown) (unknown) 57 units (unkn own) Social History date description facility 2022-11-10 00:00 Ex-smoker ([facility] Vital Signs date measurement value units 2022-11-10 00:00 BMI 34.4 kg/m2 2022-11-10 00:00 BP_diastolic 86 mmHg 2022-11-10 00:00 BP_systolic 130 mmHg 2022-11-10 00:00 heart_rate 87 /min 2022-11-10 00:00 height_metric 170.18 cm 2022-11-10 00:00 height_standard 67 in 2022-11-10 00:00 o2_saturation 98 % 2022-11-10 00:00 weight_metric 99.9 kg 2022-11-10 00:00 weight_standard 220.24 lb
--- NOTE | 2022-11-14 20:59 | ED Physician Documentation ---
PD HPI BACK PAIN - Stated complaint Stated Complaint: SCIATIC PAIN, BACK PAIN - Chief complaint Chief Complaint: Back Pain - History obtained from History obtained from: Patient - Additional information Additional information: HPI from patientFloresita VILLALOBOS. patient c/o low back pain, episodic over past few weeks, increased at approximately 2 AM when she sneezed and since then it has been constant, severe, and steadily progressive in intensity. Pain radiates down both legs, R>L . Denies loss of bowel or bladder continence. Denies injury, denies fever. Pain is exacerbated with weight-bearing, ambulating. Review of Systems Constitutional: denies: Fever, Chills, Sweats GI: denies: Abdominal Pain : denies: Incontinent Musculoskeletal: reports: Back pain. denies: Neck pain, Extremity pain, Extremity swelling Neurologic: denies: Focal weakness, Numbness PD PAST MEDICAL HISTORY - Past Medical History Past Medical History: No - Present Medications Home Medications: Ambulatory Orders Medication Instructions Recorded Confirmed Cyclobenzaprine [Flexeril] 10 mg PO TID PRN #20 tablet 11/14/22 Oxycodone HCl/Acetaminophen 1 - 2 each PO Q6H PRN #14 tablet 11/14/22 [Percocet 5-325 mg Tablet] - Allergies Allergies/Adverse Reactions: Allergies Allergy/AdvReac Type Severity Reaction Status Date / Time ibuprofen AdvReac Unknown Verified 11/14/22 19:54 - Living Situation Living Arrangement: reports: At home PD ED PE NORMAL - Vitals Vital signs reviewed: Yes - General General: Alert and oriented X 3, No acute distress (NAD at rest but appears to be in mild/moderate painful discomfort with movement involving lower back), Well developed/nourished - Cardiac Cardiac: RRR, No murmur - Respiratory Respiratory: No respiratory distress, Clear bilaterally - Abdomen Abdomen: Soft, Non tender - Extremities Extremities: No edema - Neuro Neuro: No motor deficit (5/5 bilateral platar/dorsiflexion), No sensory deficit (LTS intact BLE), Other (2+/4 DTR bilateral patella without clonus) Results - Vitals Vitals: Oxygen O2 Source Room air PD Medical Decision Making - ED course Complexity details: re-evaluated patient, considered differential, d/w patient ED course: no red flags in setting of low back pain (atraumatic, no fevers, no incontinence, no numbness/weakness, no injury); thus, no emergent testing is indicated at this time including imaging and blood tests. Suspect musculoskeletal etiology such as spinal stenosis, disc impingement, lower back strain/sprain. Given 2mg IM dilaudid, 10mg PO flexeril, and 10mg PO decadron. On reevaluation, she is in NAD including with movement. She is standing at bedside, able to ambulate slowly with antalgic gait. Return precautions discussed. patient advised to contact her PMD as soon as office is next open to arrange for immediate follow-up appointment for reevalauation. Prescriptions for percocet and flexeril e-prescribed to patient's pharmacy of choice. Departure - Departure Disposition: 01 Home, Self Care Clinical Impression: Sciatica Qualifiers: Laterality: bilateral Qualified Code(s): M54.31 - Sciatica, right side Condition: Good Instructions: ED Back Care Tips, ED Exercises Lumbar Muscles, ED Sciatica Follow-Up: Sudhir Valdez ARNP [Primary Care Provider] - Within 1 week Prescriptions: Cyclobenzaprine [Flexeril] 10 mg PO TID PRN #20 tablet PRN Reason: Spasms Oxycodone HCl/Acetaminophen [Percocet 5-325 mg Tablet] 1 - 2 each PO Q6H PRN #14 tablet PRN Reason: pain Comments: Prescriptions for Percocet (narcotic/opiate pain medication) and cyclobenzaprine (muscle relaxant) have been electronically submitted to the [facility] pharmacy in [place]. Included in these discharge instructions are exercises to help with lower back pain, but, as we discussed, I would recommend that you not start these maneuvers until you are feeling significantly better without the prescription pain medications. Contact your primary care provider when the office is next open to arrange for next billable appointment for reevaluation. I am prescribing a short course of narcotic pain medication for you. These are potentially dangerous and addictive medications that should be used carefully. These medications may constipate you. Take an jaqz-mxg-jbdjekd stool softener (docusate) twice daily with plenty of water while taking these medications. If you go 24 hours without a bowel movement, take meox-xlk-crwffmg miralax, per package instructions. Do not drink or drive while taking these medications. If you received narcotic or sedating medications while in the emergency department, do not drive for 24 hours. Store this medication in a safe, secure place and out of reach of children. It is a violation of federal law to give or sell this medication to another person or to use in a manner other than prescribed. The ED will not refill narcotic prescriptions, including prescriptions lost or stolen. To dispose of unwanted medications: 1. [facility] at [address] in [place] has a medication drop box. They accept prescription medications (in pill form) Tuesday through Tuesday 9:00 a.m. to 5:00 p.m. 2. The [facility] accepts prescription medications (in pill form only) for disposal year round. Call for more information. 3. Contact the [facility] for the next [facility] sponsored prescription drug collection event. , [phone], or [phone]; Discharge Date/Time: 11/14/22 23:29
[2022-11-14] MEDS ORDERED: CYCLOBENZAPRINE 10 MG TABLET PO STA (21:14)
[2022-11-14] MEDS ORDERED: DEXAMETHASONE 10 MG/ML VIAL PO STA (21:14)
[2022-11-14] MEDS ORDERED: CHERRY SYRUP 10 ML UDC PO ONE (21:14)
[2022-11-14] MEDS ORDERED: HYDROmorphone 1 MG/ML CARPUJECT IM STA (21:14)
[2022-11-14] MEDS ORDERED: CYCLOBENZAPRINE 10 MG Prepack 2 PO PRN (23:10)
[2022-11-14] MEDS ORDERED: oxyCODONE/ACET 5/325 Prepack 4 PO STA (23:10)
[2022-11-14 23:20] VITALS: BP 124/82
== END 2022-11-14 23:29 | disposition home or self-care (01) ==
LOC: EDUNIT# → ED 19:44
DX: M54.31 Sciatica, right side (principal)
CPT/HCPCS: 96372; 99283; A9270; J1170

== ENCOUNTER 2023-01-20 13:41 | Outpatient (CLI) | payer OTHER ==
--- NOTE | 2023-01-20 19:28 | XRAY Report ---
PROCEDURE: Lumbar Spine 3 View INDICATIONS: SCIATICA TECHNIQUE: 3 views of the lumbar spine were acquired. COMPARISON: None. FINDINGS: Bones: 5 [id number]-mvjettd vertebrae are present. There is normal bony alignment. No vertebral body compression fractures. No suspicious bony lesions. Soft tissues: Overlying bowel gas pattern is normal. No suspicious soft tissue calcifications. IMPRESSION: Normal lumbar spine radiographs Reviewed by: Charly Garcia MD on 01/20/2023 6:26 PM AKDT Approved by: Charly Garcia MD on 01/20/2023 6:26 PM AKDT Station ID: [id number]
== END 2023-01-20 13:42 | disposition home or self-care (01) ==
LOC: LAB.N 13:41 → DI.N 13:42
PROVIDERS: ATTEND Family Medicine
DX: M54.30 Sciatica, unspecified side (principal)

== ENCOUNTER 2023-04-08 20:00 | Emergency (ER) | payer OTHER ==
--- NOTE | 2023-04-08 20:23 | ED Physician Documentation ---
PD HPI BACK PAIN - Stated complaint Stated Complaint: BACK PX - Chief complaint Chief Complaint: Back Pain - History obtained from History obtained from: Patient - Additional information Additional information: HPI from patient. Patient c/o right LBP radiating down RLE associated with right leg paresthesias. The pain has been increasing in frequency over past few months, and she has been evaluated recently in this ED similar c/o (visits to [facility] ED in October, November, and January 2023) and has been following-up in outpatient setting. She says she was advised by one of her providers to go to the ED for current symptoms, as her pain/paresthesias are not in a distribution consistent with abnormalities found on recent MRI (approximately 2 months ago had MRI showing nerve impingement involving S1). In trying to avoid coming to ED, she waited to hear back from her PCP's office today, was advised to come to ED for evaluation. Review of Systems Constitutional: denies: Fever : denies: Unable to Void, Incontinent Musculoskeletal: reports: Back pain, Extremity pain (back pain radiates down RLE). denies: Extremity swelling, Pain with weight bearing Neurologic: reports: Numbness. denies: Focal weakness PD PAST MEDICAL HISTORY - Past Medical History Past Medical History: No - Present Medications Home Medications: Ambulatory Orders Medication Instructions Recorded Confirmed Gabapentin [Neurontin] 600 mg PO BID 04/08/23 04/08/23 HYDROcod/ACETAM 5/325 [[place] 5/325] 1 tab PO Q8H PRN 04/08/23 04/08/23 Hydroxychloroquine [Plaquenil] 200 mg PO DAILY 04/08/23 04/08/23 predniSONE [Deltasone] 20 mg PO [id number] #21 tab 04/08/23 tiZANidine [Zanaflex] 4 mg PO Q8H PRN 04/08/23 04/08/23 - Allergies Allergies/Adverse Reactions: Allergies Allergy/AdvReac Type Severity Reaction Status Date / Time ibuprofen AdvReac Unknown Verified 04/08/23 20:03 NSAIDS (Non-Steroidal AdvReac Unknown Verified 04/08/23 20:03 Anti-Inflamma PD ED PE NORMAL - Vitals Vital signs reviewed: Yes - General General: Alert and oriented X 3, No acute distress, Well developed/nourished - Back Back: No spinal TTP - Derm Derm: Normal color, Warm and dry, No rash - Extremities Extremities: No edema - Neuro Neuro: No sensory deficit (LTS intact BLE), Other (5/5 left dorsi/plantar flexion. 4/5 right dorsi/plantar flexion. 1+ right patellar DTR without clonus, 2+ left patellar DTR) Results - Vitals Vitals: Oxygen O2 Source Room air PD Medical Decision Making - ED course Complexity details: considered differential, d/w patient ED course: mild discrepancy in right vs left dorsi/plantar flexion testing, with right weak compared to left; patient indicates to me that this is not new. No "red flags" such as fever, loss of bowel/bladder continence, saddle anesthesia, new weakness. Recent MRI , with ED MD note from 02/15/23 visit i ndicating patient was able to provide documentation of reading of MRI performed same month indicating "severe narrowing of the right lateral recess and impingement of the right S1 nerve root due to a right subarticular disc extrusion at L5-S1". No indication at this time for emergent testing including emergent imaging such as MRI. The presenting symptoms and tonight's exam are similar to documentation on 02/15/23 visit. Given 10mg PO decadron and prescribed 10-day taper of prednisone. Return precautions discussed, advised to seek follow up with her PCP next available appointment. Departure - Departure Disposition: 01 Home, Self Care Clinical Impression: Lumbar disc disease with radiculopathy Condition: Good Instructions: ED Sciatica Prescriptions: predniSONE [Deltasone] 20 mg PO [id number] #21 tab Comments: At this time, there are no indications for emergent testing. Particularly concerning signs/symptoms that could potentially indicate need for emergent testing would include persistent numbness, weakness that is significantly different from baseline, fever, intractable pain. Consider returning to the emergency department if you develop any of these signs/symptoms. You were given a dose of steroid (dexamethasone) in the emergency department, and I am electronically submitting a prescription for a 10-day taper of a different steroid (prednisone) to the [facility] pharmacy in [place]. Often, the steroids will help reduce pain and other symptoms associated with nerve impingement by reducing inflammation causing swelling of tissue that is impinging on the nerve(s); in reducing the swelling, the impingement is lessened, and the symptoms reduced. Discharge Date/Time: 04/08/23 21:08
[2023-04-08] MEDS ORDERED: DEXAMETHASONE 10 MG/ML VIAL PO STA (20:54)
[2023-04-08] MEDS ORDERED: CHERRY SYRUP 10 ML UDC PO ONE (20:54)
[2023-04-08 21:08] VITALS: BP 144/84; O2SAT 98
== END 2023-04-08 21:08 | disposition home or self-care (01) ==
LOC: ED 20:00
DX: M51.16 Intervertebral disc disorders with radiculopathy, lumbar region (principal); Z79.899 Other long term (current) drug therapy
CPT/HCPCS: 99282; 99283; A9270

== ENCOUNTER 2023-07-08 09:18 | Outpatient (CLI) | payer OTHER ==
[2023-07-08 13:25] LABS: BASOPHILS # (AUTO) 0.1 10^3/uL (0.0-0.1); BASOPHILS % (AUTO) 1.1 %; EOSINOPHILS # (AUTO) 0.5 10^3/uL (0.0-0.7); EOSINOPHILS % (AUTO) 4.7 %; HGB - HEMOGLOBIN 13.4 g/dL (12.0-16.0); LYMPHOCYTES % (AUTO) 20.5 %; MEAN CORPUSCULAR HGB CONC 32.7 g/dL (32.0-36.0); MEAN CORPUSCULAR VOLUME 88.7 fL (81.0-99.0); MEAN PLATELET VOLUME 10.9 fL (7.9-10.8); MONOCYTES # (AUTO) 0.7 10^3/uL (0.0-1.0); MONOCYTES % (AUTO) 7.4 %; NEUTROPHILS # (AUTO) 6.4 10^3/uL (1.5-6.6); NEUTROPHILS % (AUTO) 65.8 %; PLT - PLATELET COUNT 247 10^3/uL (130-450); RED BLOOD COUNT 4.62 10^6/uL (4.20-5.40); RED CELL DISTRIBUTION WIDTH 14.5 % (12.0-15.0); WHITE BLOOD COUNT 9.7 x10^3/uL (4.8-10.8)
[2023-07-08 13:29] LABS: ALBUMIN 4.2 g/dL (3.2-5.5); ALBUMIN/GLOBULIN RATIO 1.6 (1.0-2.2); ALKALINE PHOSPHATASE 55 IU/L (42-121); ALT ALANINE AMINOTRANSFERASE 15 IU/L (10-60); AST ASPARTATE AMINOTRANSFERASE 11 IU/L (10-42); BILIRUBIN,TOTAL 0.3 mg/dL (0.2-1.0); BUN - BLOOD UREA NITROGEN 8 mg/dL (6-20); CALCIUM 9.5 mg/dL (8.5-10.3); CARBON DIOXIDE - CO2 25 mmol/L (21-32); CHLORIDE 109 mmol/L (101-111); CREATININE 0.8 mg/dL (0.6-1.3); CRP - C-REACTIVE PROTEIN < 0.5 mg/dL (<0.5); GFR - MDRD 82 (>89); GLUCOSE 88 mg/dL (74-104); POTASSIUM 3.8 mmol/L (3.5-4.5); SODIUM 140 mmol/L (135-145); TOTAL PROTEIN 6.9 g/dL (6.4-8.9)
== END 2023-07-08 09:19 | disposition home or self-care (01) ==
LOC: LAB.N 09:18
PROVIDERS: ATTEND Internal Medicine Rheumatology
DX: M05.9 Rheumatoid arthritis with rheumatoid factor, unspecified (principal); Z79.899 Other long term (current) drug therapy
CPT/HCPCS: 36415; 80053; 85025; 85651; 86140

== ENCOUNTER 2023-07-12 12:56 | Emergency (ER) | payer OTHER ==
[2023-07-12] MEDS ORDERED: oxyCODONE 5 MG TABLET PO STA (14:18)
--- NOTE | 2023-07-12 15:11 | ED Physician Documentation ---
PD HPI BACK PAIN - Stated complaint Stated Complaint: BACK PX - Chief complaint Chief Complaint: Back Pain - History obtained from History obtained from: Patient - History of Present Illness Pain level max: 8 Pain level now: 8 Location: Lower, Right, Left Quality: Pain Improves with: Rest Worsened by: Movement Contributing factors: No: Lifting, Twisting, Trauma, Anticoagulated, Cancer, IVDA - Additional information Additional information: Patient is a 32-year-old female who presents to the emergency department with low back pain. She states that about 9 weeks ago she had a discectomy at [facility]. She does not know what level. She states she has not been really having any back pain until a few days ago. States that her pain was low in the sacral area. No numbness or tingling. Nonradiating. No loss of bowel or bladder control. No fevers. No chills. Denies any IV drug use. Has been using Vicodin at home for pain. She states that she contacted her surgeon's office today who told her to come here for "imaging". She does not know what imaging they wanted. Review of Systems Constitutional: denies: Fever, Chills GI: denies: Vomiting, Diarrhea : denies: Dysuria, Frequency, Hesitancy, Incontinent, Now EGA PD PAST MEDICAL HISTORY - Past Medical History Past Medical History: Yes GI: Other Musculoskeletal: Rheumatoid arthritis, Chronic back pain - Past Surgical History Past Surgical History: Yes Ortho: Spine surgery /JANITOR HEAD: section, LEEP (Cervical surgery) - Present Medications Home Medications: Ambulatory Orders Medication Instructions Recorded Confirmed Gabapentin [Neurontin] 600 mg PO BID 04/08/23 04/08/23 HYDROcod/ACETAM 5/325 [[place] 5/325] 1 tab PO Q8H PRN 04/08/23 04/08/23 Hydroxychloroquine [Plaquenil] 200 mg PO DAILY 04/08/23 04/08/23 predniSONE [Deltasone] 20 mg PO [id number] #21 tab 04/08/23 tiZANidine [Zanaflex] 4 mg PO Q8H PRN 04/08/23 04/08/23 Oxycodone HCl/Acetaminophen 1 - 2 each PO Q6H PRN #14 tablet 07/12/23 [Percocet 5-325 mg Tablet] MDD 6 tabs - Allergies Allergies/Adverse Reactions: Allergies Allergy/AdvReac Type Severity Reaction Status Date / Time ibuprofen AdvReac Unknown Verified 07/12/23 13:11 NSAIDS (Non-Steroidal AdvReac Unknown Verified 07/12/23 13:11 Anti-Inflamma - Social History Does the pt smoke?: No Smoking Status: Never smoker Does the pt drink ETOH?: No Does the pt have substance abuse?: No - Immunizations Immunizations are current?: Yes PD ED PE NORMAL - Vitals Vital signs reviewed: Yes - General General: Alert and oriented X 3, No acute distress - HEENT HEENT: PERRL, Moist mucous membranes - Neck Neck: Supple, no meningeal sign - Cardiac Cardiac: RRR, Strong equal pulses - Respiratory Respiratory: No respiratory distress, Clear bilaterally - Abdomen Abdomen: Soft, Non tender, Non distended - Back Back: No spinal TTP (No midline tenderness palpation or percussion over the thoracolumbar spine. Does have some mild tenderness over the sacrum. No swelling. No skin changes. No evidence of infection.) - Derm Derm: Warm and dry - Extremities Extremities: No edema, No calf tenderness / cord - Neuro Neuro: Alert and oriented X 3, No motor deficit, No sensory deficit, Other (Normal bilateral lower extremity patellar and ankle jerk reflexes. Normal great toe extension bilaterally. no saddle anesthesia) - Psych Psych: Normal mood, Normal affect Results - Vitals Vitals: Vital Signs - 24 hr 07/12/23 07/12/23 13:07 16:25 Temperature 36.3 C L 36.5 C Heart Rate 78 72 Respiratory 16 16 Rate Blood Pressure 120/82 H 120/80 O2 Saturation 98 100 Oxygen O2 Source Room air - Rads (name of study) CT lumbar spine Relevant Findings:: Final report received, See rad report PD Medical Decision Making - ED course Complexity details: reviewed results, re-evaluated patient, considered differential (No cauda equina, no spinal epidural abscess, no fracture, no aortic dissection or evidence of aneursym rupture), d/w patient ED course: No acute findings on CT of the lumbar spine other than a small postoperative seroma. No fevers. No chills. No evidence of abscess or infection. Pain well-controlled here. Will place her on a small amount of pain medication for home. Ambulating well. Will have her follow-up with her spinal surgeon tomorrow. No evidence of cauda equina, epidural abscess. Patient counseled regarding signs and symptoms for which I believe and urgent re-evaluation would be necessary. Patient with good understanding of and agreement to plan and is comfortable going home at this time This document was made in part using voice recognition software. While efforts are made to proofread this document, sound alike and grammatical errors may occur. I did attempt to contact her surgeon's office, her surgeon is in surgery and not available for consult. Departure - Departure Disposition: Home, Self Care Clinical Impression: Back pain Qualifiers: Back pain location: low back pain Chronicity: acute Back pain laterality: unspecified Sciatica presence: without sciatica Qualified Code(s): M54.50 - Low back pain, unspecified Condition: Good Instructions: ED Neck Back Pain General Follow-Up: Sudhir Valdez ARNP [Primary Care Provider] - FELI FLORES DO [Physician No Access] - Within 1 week Prescriptions: Oxycodone HCl/Acetaminophen [Percocet 5-325 mg Tablet] 1 - 2 each PO Q6H PRN #14 tablet MDD 6 tabs PRN Reason: pain Comments: Your lumbar spine CT does not show any acute abnormalities. Please follow-up with your spine surgeon for further care. There is a small fluid collection in your soft tissues near the surgery site, this is likely a postoperative seroma and will likely resolve on its own. Your prescription was sent to [facility] in [place]. I am prescribing a short course of narcotic pain medication for you. These are potentially dangerous and addictive medications that should be used carefully. These medications may constipate you. Take an krbj-qpz-bhswmud stool softener (docusate) twice daily with plenty of water while taking these medications. If you go 24 hours without a bowel movement, take eiwp-pqb-bkysiik miralax, per package instructions. Do not drink or drive while taking these medications. If you received narcotic or sedating medications while in the emergency depart ment, do not drive for 24 hours. Store this medication in a safe, secure place and out of reach of children. It is a violation of federal law to give or sell this medication to another person or to use in a manner other than prescribed. The ED will not refill narcotic prescriptions, including prescriptions lost or stolen. To dispose of unwanted medications: 1. [facility] at [address] in [place] has a medication drop box. They accept prescription medications (in pill form) Tuesday through Tuesday 9:00 a.m. to 5:00 p.m. 2. The [facility] accepts prescription medications (in pill form only) for disposal year round. Call for more information. 3. Contact the [facility] for the next [facility] sponsored prescription drug collection event. , [phone], or [phone]; PROCEDURE: LUMBAR SPINE WO INDICATIONS: back pain/sacrum pain s/p discectomy 05/23 @skagit TECHNIQUE: Noncontrast 3 mm thick sections acquired from the T12 level to the sacrum. Sagittal and coronal reformats were constructed. For radiation dose reduction, the following was used: automated exposure control, adjustment of mA and/or kV according to patient size. COMPARISON: None. FINDINGS: Image quality: Excellent. Bones: Straightening of the normal lumbar lordosis. No spondylolisthesis. Disc height loss at L5-S1. No acute vertebral body compression fractures. No suspicious lytic or blastic bony lesions. Central spinal caliber is of normal overall caliber. No pars defects. Soft tissues: No retroperitoneal masses or hematomas. Visualized aorta is normal in caliber. Intrauterine device in place. Postsurgical changes within the posterior soft tissues with small fluid collection measuring approximately 2.7 x 1.7 x 3.9 cm (AP by TV by CC). Edema within the surrounding subcutaneous tissues. IMPRESSION: 1.No acute osseous abnormalities. 2.Postsurgical changes within the posterior soft tissues with small fluid collection, likely postoperative seroma. Discharge Date/Time: 07/12/23 16:25
--- NOTE | 2023-07-12 16:03 | CT Report ---
PROCEDURE: LUMBAR SPINE WO INDICATIONS: back pain/sacrum pain s/p discectomy 05/23 @skagit TECHNIQUE: Noncontrast 3 mm thick sections acquired from the T12 level to the sacrum. Sagittal and coronal refo rmats were constructed. For radiation dose reduction, the following was used: automated exposure co ntrol, adjustment of mA and/or kV according to patient size. COMPARISON: None. FINDINGS: Image quality: Excellent. Bones: Straightening of the normal lumbar lordosis. No spondylolisthesis. Disc height loss at L5-S1. No acute vertebral body compression fractures. No suspicious lytic or blastic bony lesions. Centra l spinal caliber is of normal overall caliber. No pars defects. Soft tissues: No retroperitoneal masses or hematomas. Visualized aorta is normal in caliber. Intra uterine device in place. Postsurgical changes within the posterior soft tissues with small fluid manuel ection measuring approximately 2.7 x 1.7 x 3.9 cm (AP by TV by CC). Edema within the surrounding subc utaneous tissues. IMPRESSION: 1.No acute osseous abnormalities. 2.Postsurgical changes within the posterior soft tissues with small fluid collection, likely postoper ative seroma. Reviewed by: Aldair Alaniz MD on 07/12/2023 4:01 PM PST Approved by: Aldair Alaniz MD on 07/12/2023 4:01 PM PST Station ID: [id number]
[2023-07-12 16:34] VITALS: BP 120/80; O2SAT 100
== END 2023-07-12 16:25 | disposition home or self-care (01) ==
LOC: ED 12:56
DX: M54.50 Low back pain, unspecified (principal)
CPT/HCPCS: 72131; 99283; A9270

== ENCOUNTER 2023-12-29 10:56 | Outpatient (CLI) | payer OTHER ==
[2023-12-29 18:38] LABS: CALCIUM 9.1 mg/dL (8.5-10.3); CREATININE 0.9 mg/dL (0.6-1.3); POTASSIUM 3.8 mmol/L (3.5-4.5)
== END 2023-12-29 10:57 | disposition home or self-care (01) ==
LOC: LAB.N 10:56
PROVIDERS: ATTEND Registered Nurse Diabetes Educator
DX: Z51.81 Encounter for therapeutic drug level monitoring (principal); E87.8 Other disorders of electrolyte and fluid balance, not elsewhere classified; Z79.899 Other long term (current) drug therapy
CPT/HCPCS: 36415; 80048